=== PATIENT | female | born 1995 | race Caucasian/White ===

== ENCOUNTER 2017-03-24 01:49 | Emergency (ER) | payer OTHER ==
--- NOTE | 2017-03-24 01:55 | EDM.PDOC ---
ED HPI GENERAL MEDICAL PROBLEM - General Stated Complaint: VOMITING, FAINTED Time Seen by Provider: 03/24/17 01:50 - History of Present Illness INITIAL COMMENTS - FREE TEXT/NARRATIVE: HISTORY AND PHYSICAL: History of present illness: This 21-year-old female presents with a concern of syncopal episode after vomiting tonight she states is improved dramatically she denies palpitations or other concerns she has no abdominal pain at this time of discharge irregular bleeding or other complaints Review of systems: As per history of present illness and below otherwise all systems reviewed and negative. Past medical history: As per history of present illness and as reviewed below otherwise noncontributory. Surgical history: As per history of present illness and as reviewed below otherwise noncontributory. Social history: No reported history of drug or alcohol abuse. Family history: As per history of present illness and as reviewed below otherwise noncontributory. Physical exam: HEENT: Atraumatic, normocephalic, pupils reactive, negative for conjunctival pallor or scleral icterus, mucous membranes moist, throat clear, neck supple, nontender, trachea midline. Lungs: Clear to auscultation, breath sounds equal bilaterally, chest nontender. Heart: S1S2, regular, negative for clicks, rubs, or JVD. Abdomen: Soft, nondistended, nontender. Negative for masses or hepatosplenomegaly. Negative for costovertebral tenderness. Pelvis: Stable nontender. Genitourinary: Deferred. Rectal: Deferred. Extremities: Atraumatic, negative for cords or calf pain. Neurovascular unremarkable. Neuro: Awake, alert, oriented. Cranial nerves II through XII unremarkable. Cerebellum unremarkable. Motor and sensory unremarkable throughout. Exam nonfocal. Diagnostics: CBC CMP hCG urine drug screen Therapeutics: None Impression: #1 vasovagal episode #2 history of vomiting Definitive disposition and diagnosis as appropriate pending reevaluation and review of above. - Related Data Allergies Allergy/AdvReac Type Severity Reaction Status Date / Time No Known Allergies Allergy Verified 09/10/16 18:50 Home Meds: Home Meds . 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: Musculoskeletal History: Reports: None Neurological History: Reports: None Psychiatric History: Reports: None Endocrine/Metabolic History: Reports: None Hematologic History: Reports: None Immunologic History: Reports: None Oncologic (Cancer) History: Reports: None Dermatologic History: Reports: None - Infectious Disease History Infectious Disease History: Reports: None - Past Surgical History Female Surgical History: Reports: Section Social & Family History - Family History Family Medical History: Noncontributory - Tobacco Use Smoking Status *Q: Current Every Day Smoker Years of Tobacco use: 4 Packs/Tins Daily: 0.1 Used Tobacco, but Quit: No Second Hand Smoke Exposure: No - Caffeine Use Caffeine Use: Reports: Coffee, Energy Drinks, Soda, Tea - Recreational Drug Use Recreational Drug Use: No ED ROS GENERAL - Review of Systems Review Of Systems: ROS reveals no pertinent complaints other than HPI. ED EXAM, GENERAL - Physical Exam Exam: See Below (See dictation) Course - Orders/Labs/Meds Orders: Active Orders 24 hr Category Date Time Status EKG Documentation Completion [RC] STAT Care 03/24/17 01:51 Ordered CBC WITH AUTO DIFF [HEME] Stat Lab 03/24/17 01:50 Ordered COMPREHENSIVE METABOLIC PN,CMP [CHEM] Stat Lab 03/24/17 01:50 Ordered DRUG SCREEN, URINE [URCHEM] Stat Lab 03/24/17 01:51 Uncollected HCG QUALITATIVE,URINE [URCHEM] Stat Lab 03/24/17 01:50 Uncollected Departure - Departure Time of Disposition: 01:54 Disposition: Home, Self-Care 01 Condition: good Clinical Impression: Syncope - Discharge Information Additional Instructions: The following information is given to patients seen in the emergency department who are being discharged to home. This information is to outline your options for follow-up care. We provide all patients seen in our emergency department with a follow-up referral. The need for follow-up, as well as the timing and circumstances, are variable depending upon the specifics of your emergency department visit. If you don't have a primary care physician on staff, we will provide you with a referral. We always advise you to contact your personal physician following an emergency department visit to inform them of the circumstance of the visit and for follow-up with them and/or the need for any referrals to a consulting specialist. The emergency department will also refer you to a specialist when appropriate. This referral assures that you have the opportunity for followup care with a specialist. All of these measure are taken in an effort to provide you with optimal care, which includes your followup. Under all circumstances we always encourage you to contact your private physician who remains a resource for coordinating your care. When calling for followup care, please make the office aware that this follow-up is from your recent emergency room visit. If for any reason you are refused follow-up, please contact the [facility] emergency department at and asked to speak to the emergency department charge nurse. Push fluids follow up primary medical doctor one to 2 days return as needed as discussed - My Orders Last 24 Hours: My Active Orders 03/24/17 01:50 CBC WITH AUTO DIFF [HEME] Stat COMPREHENSIVE METABOLIC PN,CMP [CHEM] Stat HCG QUALITATIVE,URINE [URCHEM] Stat 03/24/17 01:51 EKG Documentation Completion [RC] STAT DRUG SCREEN, URINE [URCHEM] Stat - Assessment/Plan Last 24 Hours: My Active Orders 03/24/17 01:50 CBC WITH AUTO DIFF [HEME] Stat COMPREHENSIVE METABOLIC PN,CMP [CHEM] Stat HCG QUALITATIVE,URINE [URCHEM] Stat 03/24/17 01:51 EKG Documentation Completion [RC] STAT DRUG SCREEN, URINE [URCHEM] Stat
[2017-03-24 02:31] LABS: CHLORIDE,CL 111 mmol/L (98-110); SODIUM,NA 140 mmol/L (136-146)
[2017-03-24 02:58] VITALS: BP 117/71
== END 2017-03-24 02:55 | disposition home or self-care (01) ==
LOC: MW.ED 01:49
DX: R55 Syncope and collapse (principal); F17.210 Nicotine dependence, cigarettes, uncomplicated
CPT/HCPCS: 36415; 80053; 80305; 81025; 85025; 93005; 99282; 99284-25

== ENCOUNTER 2017-07-25 15:48 | Emergency (ER) | payer OTHER ==
[2017-07-25 15:58] VITALS: BP 122/70
[2017-07-25] MEDS ORDERED: Ketorolac 30 MG/ML SDV IM ONE (16:37)
[2017-07-25] MEDS ORDERED: Dexamethasone 10 MG/ML SDV IM ONE (16:38)
--- NOTE | 2017-07-25 16:48 | EDM.PDOC ---
ED HPI GENERAL MEDICAL PROBLEM - General Chief Complaint: Headache Stated Complaint: HEADACHE Time Seen by Provider: 07/25/17 16:02 Source of Information: Reports: Patient History Limitations: Reports: No Limitations - History of Present Illness INITIAL COMMENTS - FREE TEXT/NARRATIVE: HISTORY AND PHYSICAL: History of present illness: [21-year-old female with a history of migraines now presents emergency department with gradual onset of headache typical for her. No fevers chills sweats or shaking chills. No stiff neck. Patient with normal speech vision coordination gait and strength] Review of systems: As per history of present illness and below otherwise all systems reviewed and negative. Past medical history: As per history of present illness and as reviewed below otherwise noncontributory. Surgical history: As per history of present illness and as reviewed below otherwise noncontributory. Social history: No reported history of drug or alcohol abuse. Family history: As per history of present illness and as reviewed below otherwise noncontributory. Physical exam: Well-appearing 21-year-old female no acute distress alert vigorous ambulating without difficulty comfortable-appearing taxing on her front. HEENT: Atraumatic, normocephalic, pupils reactive, negative for conjunctival pallor or scleral icterus, mucous membranes moist, throat clear, neck supple, nontender, trachea midline. Lungs: Clear to auscultation, breath sounds equal bilaterally, chest nontender. Heart: S1S2, regular, negative for clicks, rubs, or JVD. Abdomen: Soft, nondistended, nontender. Negative for masses or hepatosplenomegaly. Negative for costovertebral tenderness. Pelvis: Stable nontender. Genitourinary: Deferred. Rectal: Deferred. Extremities: Atraumatic, negative for cords or calf pain. Neurovascular unremarkable. Neuro: Awake, alert, oriented. Cranial nerves II through XII unremarkable. Cerebellum unremarkable. Motor and sensory unremarkable throughout. Exam nonfocal. Diagnostics: [] Therapeutics: [] Impression: [Migraine headache] Plan: [Signs and symptoms consistent with gradual onset of migraine headache typical for patient. She is well-appearing supple neck no infectious prodrome. Improved after treatment. No further workup or treatment indicated. Patient agrees with outpatient follow-up and strict return precautions given] Definitive disposition and diagnosis as appropriate pending reevaluation and review of above. 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: Musculoskeletal History: Reports: None Neurological History: Reports: None Psychiatric History: Reports: None Endocrine/Metabolic History: Reports: None Hematologic History: Reports: None Immunologic History: Reports: None Oncologic (Cancer) History: Reports: None Dermatologic History: Reports: None - Infectious Disease History Infectious Disease History: Reports: None - Past Surgical History Head Surgeries/Procedures: Reports: None Female Surgical History: Reports: Section Social & Family History - Family History Family Medical History: Noncontributory - Tobacco Use Smoking Status *Q: Current Every Day Smoker Years of Tobacco use: 3 Packs/Tins Daily: 0.5 Used Tobacco, but Quit: No Second Hand Smoke Exposure: No - Caffeine Use Caffeine Use: Reports: Tea - Recreational Drug Use Recreational Drug Use: No ED ROS GENERAL - Review of Systems Review Of Systems: See Below (History of present illness) - Physical Exam Exam: See Below (History of present illness) Course - Vital Signs Last Recorded V/S: Last Vital Signs Temp 36.2 C 07/25/17 15:56 Pulse 83 07/25/17 15:56 Resp 18 07/25/17 15:56 BP 122/70 07/25/17 15:56 Pulse Ox - Orders/Labs/Meds Meds: Medications Discontinued Medications Generic Name Dose Route Start Last Admin Trade Name Stanford PRN Reason Stop Dose Admin Dexamethasone 10 mg 07/25/17 16:38 07/25/17 16:47 Dexamethasone IM 07/25/17 16:39 10 mg ONETIME ONE Administration Ketorolac Tromethamine 30 mg 07/25/17 16:37 07/25/17 16:47 Toradol IM 07/25/17 16:38 30 mg ONETIME ONE Administration Departure - Departure Time of Disposition: 17:01 Disposition: Home, Self-Care 01 Condition: Good Clinical Impression: Migraine - Discharge Information Instructions: Recurrent Migraine Headache, [id number], General Headache Without Cause, [id number] Referrals: Clifford Frey MD [Primary Care Provider] - Forms: ED Department Discharge Additional Instructions: You are suffering from a migraine headache. Rest and drink plenty of fluids. Take 600 mg of ibuprofen every 6 hours as well as tylenol every 4 hours as needed for pain. Consider over the counter benadryl 25 mg every 4-6 hours as needed if you find this to be helpful for migraines. Follow up with your doctor tomorrow.
== END 2017-07-25 17:12 | disposition home or self-care (01) ==
LOC: MW.ED 15:48
DX: G43.909 Migraine, unspecified, not intractable, without status migrainosus (principal); F17.210 Nicotine dependence, cigarettes, uncomplicated
CPT/HCPCS: 96372; 99283; J1100; J1885; 99282

== ENCOUNTER 2017-11-14 23:07 | Emergency (ER) | payer OTHER ==
--- NOTE | 2017-11-14 23:32 | EDM.PDOC ---
ED HPI GENERAL MEDICAL PROBLEM - General Chief Complaint: ENT Problem Stated Complaint: PT HAS SORE THROAT Time Seen by Provider: 11/14/17 23:29 - History of Present Illness INITIAL COMMENTS - FREE TEXT/NARRATIVE: HISTORY AND PHYSICAL: History of present illness: Patient's 21-year-old white female presents with concern of sore throat fever chills states has had some body aches denies vomiting diarrhea or other concern Review of systems: As per history of present illness and below otherwise all systems reviewed and negative. Past medical history: As per history of present illness and as reviewed below otherwise noncontributory. Surgical history: As per history of present illness and as reviewed below otherwise noncontributory. Social history: No reported history of drug or alcohol abuse. Family history: As per history of present illness and as reviewed below otherwise noncontributory. Physical exam: HEENT: Atraumatic, normocephalic, pupils reactive, negative for conjunctival pallor or scleral icterus, mucous membranes moist, throat mild injection with slight edema of her uvula, neck supple, nontender, trachea midline. Lungs: Clear to auscultation, breath sounds equal bilaterally, chest nontender. Heart: S1S2, regular, negative for clicks, rubs, or JVD. Abdomen: Soft, nondistended, nontender. Negative for masses or hepatosplenomegaly. Negative for costovertebral tenderness. Pelvis: Stable nontender. Genitourinary: Deferred. Rectal: Deferred. Extremities: Atraumatic, negative for cords or calf pain. Neurovascular unremarkable. Neuro: Awake, alert, oriented. Cranial nerves II through XII unremarkable. Cerebellum unremarkable. Motor and sensory unremarkable throughout. Exam nonfocal. Diagnostics: Rapid strep influenza screen Therapeutics: None Impression: #1 viral syndrome Definitive disposition and diagnosis as appropriate pending reevaluation and review of above. throat Pain Score (Numeric/FACES): 7 hypogastric Pain Score (Numeric/FACES): 8 - Related Data Allergies Allergy/AdvReac Type Severity Reaction Status Date / Time No Known Allergies Allergy Verified 11/14/17 23:20 Home Meds: Home Meds Fludrocortisone [Florinef] 0.1 mg PO WITHBREAKFAST 07/25/17 [History] Past Medical History - Past Health History Medical/Surgical History: Denies Medical/Surgical History HEENT History: Reports: None Cardiovascular History: Reports: Syncope, Other (See Below) Other Cardiovascular History: orthostatic hypotension Respiratory History: Reports: None Gastrointestinal History: Reports: None Genitourinary History: Reports: None 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: Musculoskeletal History: Reports: None Neurological History: Reports: None Psychiatric History: Reports: None Endocrine/Metabolic History: Reports: None Hematologic History: Reports: None Immunologic History: Reports: None Oncologic (Cancer) History: Reports: None Dermatologic History: Reports: None - Infectious Disease History Infectious Disease History: Reports: None - Past Surgical History Head Surgeries/Procedures: Reports: None Female Surgical History: Reports: Section Social & Family History - Family History Family Medical History: Noncontributory - Tobacco Use Smoking Status *Q: Current Every Day Smoker Years of Tobacco use: 4 Packs/Tins Daily: 1 Used Tobacco, but Quit: No Second Hand Smoke Exposure: No - Caffeine Use Caffeine Use: Reports: Tea - Recreational Drug Use Recreational Drug Use: No ED ROS GENERAL - Review of Systems Review Of Systems: ROS reveals no pertinent complaints other than HPI. ED EXAM, GENERAL - Physical Exam Exam: See Below (See dictation) Course - Vital Signs Last Recorded V/S: Last Vital Signs Temp 36.6 C 11/14/17 23:07 Pulse 78 11/14/17 23:07 Resp 18 11/14/17 23:07 BP 172/95 H 11/14/17 23:07 Pulse Ox 98 11/14/17 23:07 - Orders/Labs/Meds Orders: Active Orders 24 hr Category Date Time Status CULTURE STREP A CONFIRMATION [] Stat Lab 11/14/17 23:35 Results STREP SCRN A RAPID W CULT CONF [RM] Stat Lab 11/14/17 23:35 Results Labs: Laboratory Tests 11/14/17 Range/Units 23:40 Urine Color YELLOW Urine Appearance CLOUDY Urine pH 5.5 (5.0-8.0) Ur Specific [place] >= 1.030 (1.001-1.035) Urine Protein NEGATIVE (NEGATIVE) mg/dL Urine Glucose (UA) NEGATIVE (NEGATIVE) mg/dL Urine Ketones NEGATIVE (NEGATIVE) mg/dL Urine Occult Blood NEGATIVE (NEGATIVE) Urine Nitrite NEGATIVE (NEGATIVE) Urine Bilirubin NEGATIVE (NEGATIVE) Urine Urobilinogen 0.2 (<2.0) EU/dL Ur Leukocyte Esterase SMALL (NEGATIVE) Urine RBC 0-2 (0-2/HPF) Urine WBC 75-100 (0-5/HPF) Ur Epithelial Cells FEW (NONE-FEW) Urine Bacteria 3+ H (NEGATIVE) Departure - Departure Time of Disposition: 00:10 Disposition: Home, Self-Care 01 Condition: Good Clinical Impression: Viral syndrome - Discharge Information Referrals: PCP,None [Primary Care Provider] - Forms: ED Department Discharge Additional Instructions: The following information is given to patients seen in the emergency department who are being discharged to home. This information is to outline your options for follow-up care. We provide all patients seen in our emergency department with a follow-up referral. The need for follow-up, as well as the timing and circumstances, are variable depending upon the specifics of your emergency department visit. If you don't have a primary care physician on staff, we will provide you with a referral. We always advise you to contact your personal physician following an emergency department visit to inform them of the circumstance of the visit and for follow-up with them and/or the need for any referrals to a consulting specialist. The emergency department will also refer you to a specialist when appropriate. This referral assures that you have the opportunity for followup care with a specialist. All of these measure are taken in an effort to provide you with optimal care, which includes your followup. Under all circumstances we always encourage you to contact your private physician who remains a resource for coordinating your care. When calling for followup care, please make the office aware that this follow-up is from your recent emergency room visit. If for any reason you are refused follow-up, please contact the [facility] emergency department at and asked to speak to the emergency department charge nurse. Motrin/Tylenol as directed follow-up primary medical doctor 1-2 days push fluids return as needed as discussed - My Orders Last 24 Hours: My Active Orders 11/14/17 23:35 CULTURE STREP A CONFIRMATION [RM] Stat STREP SCRN A RAPID W CULT CONF [RM] Stat - Assessment/Plan Last 24 Hours: My Active Orders 11/14/17 23:35 CULTURE STREP A CONFIRMATION [RM] Stat STREP SCRN A RAPID W CULT CONF [RM] Stat
[2017-11-15 00:38] VITALS: BP 156/90
== END 2017-11-15 00:35 | disposition home or self-care (01) ==
LOC: MW.ED 23:07
DX: B34.9 Viral infection, unspecified (principal); N39.0 Urinary tract infection, site not specified; F17.210 Nicotine dependence, cigarettes, uncomplicated
CPT/HCPCS: 81001; 87081; 87804; 87880; 99283

== ENCOUNTER 2018-04-12 17:24 | Emergency (ER) | payer OTHER ==
[2018-04-12] MEDS ORDERED: Sodium Chloride 0.9% 1,000 ML IV ONE (17:33)
--- NOTE | 2018-04-12 17:36 | EDM.PDOC ---
ED HPI GENERAL MEDICAL PROBLEM - General Chief Complaint: Chest Pain Stated Complaint: HEART PROBLEMS Time Seen by Provider: 04/12/18 17:32 - History of Present Illness INITIAL COMMENTS - FREE TEXT/NARRATIVE: HISTORY AND PHYSICAL: History of present illness: Patient's 22-year-old female presents with concern of chest pain is vaguely described without associated shortness breath nausea vomiting fever chills. Patient has a history of vasovagal syncope. Current meds include Florinef Review of systems: As per history of present illness and below otherwise all systems reviewed and negative. Past medical history: As per history of present illness and as reviewed below otherwise noncontributory. Surgical history: As per history of present illness and as reviewed below otherwise noncontributory. Social history: No reported history of drug or alcohol abuse. Family history: As per history of present illness and as reviewed below otherwise noncontributory. Physical exam: HEENT: Atraumatic, normocephalic, pupils reactive, negative for conjunctival pallor or scleral icterus, mucous membranes moist, throat clear, neck supple, nontender, trachea midline. Lungs: Clear to auscultation, breath sounds equal bilaterally, chest nontender. Heart: S1S2, regular, negative for clicks, rubs, or JVD. Abdomen: Soft, nondistended, nontender. Negative for masses or hepatosplenomegaly. Negative for costovertebral tenderness. Pelvis: Stable nontender. Genitourinary: Deferred. Rectal: Deferred. Extremities: Atraumatic, negative for cords or calf pain. Neurovascular unremarkable. Neuro: Awake, alert, oriented. Cranial nerves II through XII unremarkable. Cerebellum unremarkable. Motor and sensory unremarkable throughout. Exam nonfocal. Diagnostics: Chest x-ray EKG CBC CMP Therapeutics: Normal saline 1 L bolus Impression: #1 atypical chest pain Definitive disposition and diagnosis as appropriate pending reevaluation and review of above. Chest Pain Score (Numeric/FACES): 4 - Related Data Allergies Allergy/AdvReac Type Severity Reaction Status Date / Time No Known Allergies Allergy Verified 11/14/17 23:20 Home Meds: Home Meds Fludrocortisone [Florinef] 0.1 mg PO WITHBREAKFAST 07/25/17 [History] Past Medical History - Past Health History Medical/Surgical History: Denies Medical/Surgical History HEENT History: Reports: None Cardiovascular History: Reports: Syncope, Other (See Below) Other Cardiovascular History: orthostatic hypotension Respiratory History: Reports: None Gastrointestinal History: Reports: None Genitourinary History: Reports: None 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: Musculoskeletal History: Reports: None Neurological History: Reports: None Psychiatric History: Reports: None Endocrine/Metabolic History: Reports: None Hematologic History: Reports: None Immunologic History: Reports: None Oncologic (Cancer) History: Reports: None Dermatologic History: Reports: None - Infectious Disease History Infectious Disease History: Reports: None - Past Surgical History Head Surgeries/Procedures: Reports: None Female Surgical History: Reports: Section Social & Family History - Family History Family Medical History: Noncontributory - Tobacco Use Smoking Status *Q: Current Every Day Smoker Years of Tobacco use: 5 Packs/Tins Daily: 0.5 - Caffeine Use Caffeine Use: Reports: Tea ED ROS GENERAL - Review of Systems Review Of Systems: ROS reveals no pertinent complaints other than HPI. ED EXAM, GENERAL - Physical Exam Exam: See Below (The dictation) Course - Vital Signs Last Recorded V/S: Last Vital Signs Temp 36.6 C 04/12/18 17:33 Pulse 104 H 04/12/18 17:33 Resp 16 04/12/18 17:33 BP 170/120 H 04/12/18 17:33 Pulse Ox 100 04/12/18 17:33 - Orders/Labs/Meds Orders: Active Orders 24 hr Category Date Time Status EKG Documentation Completion [RC] STAT Care 04/12/18 17:33 Active Chest 1V Frontal [CR] Stat Exams 04/12/18 17:34 Taken Sodium Chloride 0.9% [Normal Saline] 1,000 ml Med 04/12/18 17:33 Active IV STAT Medication Orders Sodium Chloride (Normal Saline) 1,000 mls @ 999 mls/hr IV STAT ONE Stop: 04/12/18 18:33 Last Admin: 04/12/18 17:37 Dose: 999 mls/hr Labs: Laboratory Tests 04/12/18 04/12/18 Range/Units 17:40 17:40 WBC 8.89 (4.0-11.0) K/uL RBC 4.58 (4.30-5.90) M/uL Hgb 14.9 (12.0-16.0) g/dL Hct 43.0 (36.0-46.0) % MCV 93.9 (80.0-98.0) fL MCH 32.5 H (27.0-32.0) pg MCHC 34.7 (31.0-37.0) g/dL RDW Std Deviation 45.2 (28.0-62.0) fl RDW Coeff of Flo 13 (11.0-15.0) % Plt Count 249 (150-400) K/uL MPV 10.50 (7.40-12.00) fL Neut % (Auto) 79.0 (48.0-80.0) % Lymph % (Auto) 13.8 L (16.0-40.0) % [place] % (Auto) 6.3 (0.0-15.0) % Eos % (Auto) 0.7 (0.0-7.0) % Baso % (Auto) 0.2 (0.0-1.5) % Neut # (Auto) 7.0 H (1.4-5.7) K/uL Lymph # (Auto) 1.2 (0.6-2.4) K/uL [place] # (Auto) 0.6 (0.0-0.8) K/uL Eos # (Auto) 0.1 (0.0-0.7) K/uL Baso # (Auto) 0.0 (0.0-0.1) K/uL Nucleated RBC % 0.0 /100WBC Nucleated RBCs # 0 K/uL Sodium 144 (136-145) mmol/L Potassium 3.6 (3.5-5.1) mmol/L Chloride 106 (98-107) mmol/L Carbon Dioxide 25.0 (21.0-32.0) mmol/L BUN 11 (7.0-18.0) mg/dL Creatinine 0.9 (0.6-1.0) mg/dL Est Cr Clr Drug Dosing 80.42 mL/min Estimated GFR (MDRD) > 60.0 ml/min Glucose 86 (74-106) mg/dL Calcium 9.3 (8.5-10.1) mg/dL Total Bilirubin 0.4 (0.2-1.0) mg/dL AST 16 (15-37) IU/L ALT 18 (14-63) IU/L Alkaline Phosphatase 56 (46-116) U/L Total Protein 8.0 (6.4-8.2) g/dL Albumin 4.4 (3.4-5.0) g/dL Globulin 3.6 H (2.0-3.5) g/dL Albumin/Globulin Ratio 1.2 L (1.3-2.8) Meds: Medications Generic Name Dose Route Start Last Admin Trade Name Freq PRN Reason Stop Dose Admin Sodium Chloride 1,000 mls @ 999 mls/hr 04/12/18 17:33 04/12/18 17:37 Normal Saline IV 04/12/18 18:33 999 mls/hr STAT ONE Administration Departure - Departure Time of Disposition: 17:36 Disposition: Home, Self-Care 01 Condition: Good Clinical Impression: Atypical chest pain - Discharge Information Referrals: PCP,None [Primary Care Provider] - Forms: ED Department Discharge Additional Instructions: The following information is given to patients seen in the emergency department who are being discharged to home. This information is to outline your options for follow-up care. We provide all patients seen in our emergency department with a follow-up referral. The need for follow-up, as well as the timing and circumstances, are variable depending upon the specifics of your emergency department visit. If you don't have a primary care physician on staff, we will provide you with a referral. We always advise you to contact your personal physician following an emergency department visit to inform them of the circumstance of the visit and for follow-up with them and/or the need for any referrals to a consulting specialist. The emergency department will also refer you to a specialist when appropriate. This referral assures that you have the opportunity for followup care with a specialist. All of these measure are taken in an effort to provide you with optimal care, which includes your followup. Under all circumstances we always encourage you to contact your private physician who remains a resource for coordinating your care. When calling for followup care, please make the office aware that this follow-up is from your recent emergency room visit. If for any reason you are refused follow-up, please contact the [facility] emergency department at and asked to speak to the emergency department charge nurse. Continue current meds follow-up primary medical doctor as needed as discussed return as needed as discussed - My Orders Last 24 Hours: My Active Orders 04/12/18 17:33 EKG Documentation Completion [RC] STAT Sodium Chloride 0.9% [Normal Saline] 1,000 ml IV STAT 04/12/18 17:34 Chest 1V Frontal [CR] Stat - Assessment/Plan Last 24 Hours: My Active Orders 04/12/18 17:33 EKG Documentation Completion [RC] STAT Sodium Chloride 0.9% [Normal Saline] 1,000 ml IV STAT 04/12/18 17:34 Chest 1V Frontal [CR] Stat
[2018-04-12 18:06] LABS: CHLORIDE,CL 106 mmol/L (98-107); SODIUM,NA 144 mmol/L (136-145)
[2018-04-12 18:38] VITALS: BP 147/81
--- NOTE | 2018-04-15 09:56 | CR ---
EXAM DATE: 04/12/18 PATIENT'S AGE: 22 Patient: ADONIS AMIN Facility: [place], [place] Site . Site : 1995 Study: XRay Chest [id number]/15/2018 5:38:01 PM Ordering Physician: Chalo Liriano Final Report: INDICATION: chest pain TECHNIQUE: Chest 1 view COMPARISON: March 08, 2010 FINDINGS: Cardiovascular and mediastinum: Heart size and vasculature are normal in caliber and appearance. Mediastinum is within normal limits. Lungs and pleural space: No focal consolidation. No sign of pleural effusion. No pneumothorax. Bones and soft tissues: No significant findings. IMPRESSION: No acute cardiopulmonary disease. Dictated by Robert Lea MD @ 04/12/2018 6:14:59 PM Dictated by: Robert Lea MD @ 04/12/2018 18:15:36 (Electronic Signature) Report Signed by Proxy. ST[facility]IATRIC CENTERMatt
== END 2018-04-12 18:44 | disposition home or self-care (01) ==
LOC: MW.ED 17:24
DX: R07.89 Other chest pain (principal); F17.210 Nicotine dependence, cigarettes, uncomplicated; Z79.899 Other long term (current) drug therapy
CPT/HCPCS: 36415; 71045; 80053; 85025; 93005; 96360; 99285; J7040

== ENCOUNTER 2019-01-06 18:49 | Observation (INO) | payer OTHER, MEDICAID ==
[2019-01-06] MEDS ORDERED: Sodium Chloride 0.9% 2.5 ML Syringe FLUSH PRN (19:12)
[2019-01-06] MEDS ORDERED: Ondansetron 4 MG/2 ML SDV IVPUSH ONE (19:12)
[2019-01-06] MEDS ORDERED: Sodium Chloride 0.9% 10 ML Syringe FLUSH PRN (19:12)
[2019-01-06] MEDS ORDERED: Morphine 2 MG/ML Syringe IVPUSH ONE ×4 (19:12→22:41)
[2019-01-06] MEDS ORDERED: Sodium Chloride 0.9% 1,000 ML IV ONE (19:12)
--- NOTE | 2019-01-06 19:16 | EDM.PDOC ---
ED HPI GENERAL MEDICAL PROBLEM - General Chief Complaint: Lower Extremity Injury/Pain Stated Complaint: HURT R ANKLE Time Seen by Provider: 01/06/19 19:08 - History of Present Illness INITIAL COMMENTS - FREE TEXT/NARRATIVE: HISTORY AND PHYSICAL: History of present illness: The patient is a healthy 23-year-old female who is 27 weeks and presents with complaints of right ankle pain after she slipped and fell and rolled her ankle and heard a pop. She did not pass out or black out and she did not hit her head back or abdomen. Prior to these events she was in her usual state of good health and she has had movement and she has had no abdominal pain or vaginal bleeding. The patient says the pain is localized to the right ankle and radiates up her leg but she doesn't have any discrete knee pain hip pain or pelvis pain. Neurosensory is intact in her foot and she can wiggle her toes but it is discomforting. She did not take any pain medication prior to coming here Review of systems: As per history of present illness and below otherwise all systems reviewed and negative. Past medical history: As per history of present illness and as reviewed below otherwise noncontributory. Surgical history: As per history of present illness and as reviewed below otherwise noncontributory. Social history: No reported history of drug or alcohol abuse. Family history: As per history of present illness and as reviewed below otherwise noncontributory. Physical exam: General: Well-developed well-nourished female who is nontoxic and vital signs are noted by me HEENT: Atraumatic, normocephalic, negative for conjunctival pallor or scleral icterus, mucous membranes moist, throat clear, neck supple, nontender, trachea midline. There are no palpable bony deformities of the scalp skull and no midline step-offs tenderness defects of the cervical spine Lungs: Clear to auscultation, breath sounds equal bilaterally, chest nontender. Heart: S1S2, regular rhythm slightly tachycardic rate of my evaluation but no overt murmurs Abdomen: Soft, nondistended, nontender. Gravid uterus with a fundus above the level of the umbilicus without any tenderness. Pelvis: Stable nontender. No lateral hip tenderness on palpation Genitourinary: Deferred. Rectal: Deferred. Extremities: Atraumatic with full range of motion of all extremities with the exception of the right ankle with there is diffuse circumferential soft tissue swelling and tenderness but the alignment appears to be normal. There is some proximal fibular tenderness without defects or deformities but the knee thigh and hip are all nontender without any palpable deformities. The distal foot is intact and there is no tenderness along the metatarsals feel the toes.. Neurovascular unremarkable. Neuro: Awake, alert, oriented. Cranial nerves II through XII unremarkable. Cerebellum unremarkable. Motor and sensory unremarkable throughout. Exam nonfocal. Diagnostics: X-ray right tib-fib and ankle, heart tones Pelvic ultrasound Therapeutics: IV placement, IV fluids Zofran and morphine, post mold and sugar tong splints heart tones 139 in the left lower quadrant per nursing 2103: Dr. Gallegos was contacted and is currently reviewing the x-rays for care plan. She is aware that she is 27 weeks . 2114 and 2117: Case was discussed with Dr. Gallegos after she saw the x-rays as well as Dr. Wilkes from OB. Pain management is going to be the issue here as the patient is still having significant pain. I will give her another dose of morphine and Dr. Gallegos said we can get her pain under control then she can see the patient in the clinic. Dr. Wilkes approved use of morphine IV as well as Percocet orally. Both of said that if her pain is not controlled and she will need to be admitted for pain management. Dr. Wilkes has asked for a pelvic ultrasound to document viability and the patient is aware of this. 2246: As the patient is having continued pain I contacted Dr. Gallegos will admit the patient and I will also put in a consult to Dr. Wilkes. Patient is aware of this. We'll also place a sugar tong and post mold splint and Dr. Gallegos will call the floor for orders. Impression: Trimalleolar fracture right Third trimester stable Definitive disposition and diagnosis as appropriate pending reevaluation and review of above. Right ankle Pain Score (Numeric/FACES): 10 - Related Data Allergies Allergy/AdvReac Type Severity Reaction Status Date / Time No Known Allergies Allergy Verified 01/06/19 19:17 Home Meds: Home Meds PNV95/Ferrous Fumarate/FA [ Tablet] 1 each PO DAILY 01/06/19 [History] Past Medical History - Past Health History Medical/Surgical History: Denies Medical/Surgical History HEENT History: Reports: None Cardiovascular History: Reports: Syncope, Other (See Below) Other Cardiovascular History: states "my heart beats fast when I pass out" Respiratory History: Reports: None Gastrointestinal History: Reports: None Genitourinary History: Reports: None 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: Musculoskeletal History: Reports: None Neurological History: Reports: None Psychiatric History: Reports: Anxiety, Depression Endocrine/Metabolic History: Reports: None Hematologic History: Reports: None Immunologic History: Reports: None Oncologic (Cancer) History: Reports: None Dermatologic History: Reports: None - Infectious Disease History Infectious Disease History: Reports: None - Past Surgical History Head Surgeries/Procedures: Reports: None Female Surgical History: Reports: Section Social & Family History - Family History Family Medical History: Noncontributory - Caffeine Use Caffeine Use: Reports: Coffee, Energy Drinks, Soda Review of Systems - Review of Systems Review Of Systems: ROS reveals no pertinent complaints other than HPI. ED EXAM, GENERAL - Physical Exam Exam: See Below (See dictation) Course - Vital Signs Last Recorded V/S: Last Vital Signs Temp 36.4 C 01/06/19 20:51 Pulse 82 01/06/19 22:48 Resp 18 01/06/19 22:48 BP 121/74 01/06/19 22:48 Pulse Ox 97 01/06/19 22:48 - Orders/Labs/Meds Orders: Active Orders 24 hr Category Date Time Status Patient Status [ADT] Stat ADT 01/06/19 22:49 Ordered Communication Order [RC] STAT Care 01/06/19 19:11 Active Notify Provider Consults [RC] ASDIRECTED Care 01/06/19 22:49 Ordered Consult to Physician [CONS] Stat Cons 01/06/19 22:48 Ordered Ankle Min 3V Rt [CR] Stat Exams 01/06/19 19:11 Taken Sodium Chloride 0.9% @ 125 MLS/HR (1,000ml) Med 01/06/19 23:00 Ordered Sodium Chloride 0.9% [Normal Saline] 1,000 ml IV ASDIRECTED Sodium Chloride 0.9% [Saline Flush] Med 01/06/19 19:12 Active 10 ml FLUSH ASDIRECTED PRN Sodium Chloride 0.9% [Saline Flush] Med 01/06/19 19:12 Active 2.5 ml FLUSH ASDIRECTED PRN DME for Discharge [COMM] Stat Oth 01/06/19 22:50 Ordered Saline Lock Insert [OM.PC] Stat Oth 01/06/19 19:12 Ordered Medication Orders Sodium Chloride (Saline Flush) 10 ml FLUSH ASDIRECTED PRN PRN Reason: Keep Vein Open Sodium Chloride (Saline Flush) 2.5 ml FLUSH ASDIRECTED PRN PRN Reason: Keep Vein Open Meds: Medications Generic Name Dose Route Start Last Admin Trade Name Freq PRN Reason Stop Dose Admin Sodium Chloride 10 ml 01/06/19 19:12 Saline Flush FLUSH ASDIRECTED PRN Keep Vein Open Sodium Chloride 2.5 ml 01/06/19 19:12 Saline Flush FLUSH ASDIRECTED PRN Keep Vein Open Discontinued Medications Generic Name Dose Route Start Last Admin Trade Name Freq PRN Reason Stop Dose Admin Sodium Chloride 1,000 mls @ 999 mls/hr 01/06/19 19:12 01/06/19 19:28 Normal Saline IV 01/06/19 20:12 999 mls/hr STAT ONE Administration Morphine Sulfate 4 mg 01/06/19 19:12 01/06/19 19:36 Morphine IVPUSH 01/06/19 19:13 4 mg ONETIME ONE Administration Morphine Sulfate 4 mg 01/06/19 21:20 01/06/19 21:29 Morphine IVPUSH 01/06/19 21:21 4 mg ONETIME ONE Administration Morphine Sulfate 4 mg 01/06/19 22:05 01/06/19 22:17 Morphine IVPUSH 01/06/19 22:06 4 mg ONETIME ONE Administration Morphine Sulfate 4 mg 01/06/19 22:41 01/06/19 22:49 Morphine IVPUSH 01/06/19 22:42 4 mg ONETIME ONE Administration Ondansetron HCl 4 mg 01/06/19 19:12 01/06/19 19:27 Zofran IVPUSH 01/06/19 19:13 4 mg ONETIME ONE Administration Departure - Departure Time of Disposition: 22:52 Disposition: Refer to Observation Condition: Good Clinical Impression: Trimalleolar fracture Qualifiers: Encounter type: initial encounter Fracture type: closed Laterality: left Qualified Code(s): S82.852A - Displaced trimalleolar fracture of left lower leg , initial encounter for closed fracture - Discharge Information Referrals: Melanie Silva MD [Primary Care Provider] - Forms: ED Department Discharge - My Orders Last 24 Hours: My Active Orders 01/06/19 19:11 Communication Order [RC] STAT Ankle Min 3V Rt [CR] Stat 01/06/19 19:12 Sodium Chloride 0.9% [Saline Flush] 10 ml FLUSH ASDIRECTED PRN Sodium Chloride 0.9% [Saline Flush] 2.5 ml FLUSH ASDIRECTED PRN Saline Lock Insert [OM.PC] Stat 01/06/19 22:48 Consult to Physician [CONS] Stat 01/06/19 22:49 Patient Status [ADT] Stat Notify Provider Consults [RC] ASDIRECTED 01/06/19 22:50 DME for Discharge [COMM] Stat 01/06/19 23:00 Sodium Chloride 0.9% @ 125 MLS/HR (1,000ml) Sodium Chloride 0.9% [Normal Saline ] 1,000 ml IV ASDIRECTED - Assessment/Plan Last 24 Hours: My Active Orders 01/06/19 19:11 Communication Order [RC] STAT Ankle Min 3V Rt [CR] Stat 01/06/19 19:12 Sodium Chloride 0.9% [Saline Flush] 10 ml FLUSH ASDIRECTED PRN Sodium Chloride 0.9% [Saline Flush] 2.5 ml FLUSH ASDIRECTED PRN Saline Lock Insert [OM.PC] Stat 01/06/19 22:48 Consult to Physician [CONS] Stat 01/06/19 22:49 Patient Status [ADT] Stat Notify Provider Consults [RC] ASDIRECTED 01/06/19 22:50 DME for Discharge [COMM] Stat 01/06/19 23:00 Sodium Chloride 0.9% @ 125 MLS/HR (1,000ml) Sodium Chloride 0.9% [Normal Saline ] 1,000 ml IV ASDIRECTED
--- NOTE | 2019-01-06 21:03 | CR ---
Indication: Pain after fall Technique: Two views right tibia fibula Comparison: None Findings: Distal tibia and fibular fractures redemonstrated. Remainder of the tibia and fibula show normal bony mineralization without fracture. No proximal soft tissue swelling. Impression: No evidence of proximal tibia or fibular fracture. Please see ankle report for comments about the trimalleolar fracture. Dictated by Barber Solis MD @ Jan 06 2019 9:00PM Signed by Dr. Barber Solis @ Jan 06 2019 9:02PM
--- NOTE | 2019-01-06 22:44 | US ---
INDICATION: Fall. TECHNIQUE: Limited transabdominal obstetrical ultrasound. COMPARISON: None available FINDINGS: A single live intrauterine gestation is seen in cephalic presentation. There is cardiac activity with a heart rate of 129 BPM. measurements are not performed and anatomy is not evaluated. The placenta is anterior. The cervix is not well seen. Amniotic fluid volume is within normal limits with an EVANGELINA of 17.7 cm, and the deepest single pocket measuring 5.2 cm. Neither ovary is visualized. No significant free fluid is seen. IMPRESSION: A single live intrauterine gestation. anatomy is not evaluated. Followup, as clinically indicated. Nonvisualization of the ovaries. Dictated by Ambrocio Jessica MD @ 01/06/2019 10:42:13 PM Dictated by: Ambrocio Jessica MD @ 01/06/2019 22:42:23 (Electronically Signed)
[2019-01-06] MEDS ORDERED: Sodium Chloride 0.9% 1,000 ML IV SCH (23:00)
[2019-01-06] MEDS ORDERED: Morphine 2 MG/ML Syringe IVPUSH SCH (23:45)
[2019-01-06] MEDS ORDERED: Betamethasone Acetate/Betamethasone Sod Phosphate 30 MG/5 ML MDV IM ONE (23:58)
--- NOTE | 2019-01-07 00:10 | PCM.SN ---
- Free Text/Narrative Note: 23yo @ 27w ( Previous X1) admitted due to fall on the right ankle. Patient states she was about to throw garbage and slipped and fell on her side, she denies any fall on her abdomen , pelvic pain or cramping or bleeding. She also reports movement. Patient complains of pain in the right ankle that radiates to the left. She had Xray done which showed distal tibia and fibula fracture USS done: Live intrauterine gestation with FHR 129, Normal amniotic fluid Exam: General : NAD, patient with a cast on the right lower limb Chest; CTA BL CVS; s1 s2 no murmurs Pelvic : Deffered VSS: BP: 137/74 HR: 92 Osat: 92% A/P 23yo @ 27w with Fracture of Right tibia fibula status reassuring Plan Pain control as needed Recommend Betamethasone Before surgery if planned ( ordered) NST q shift , will get one this night Please consult OB if surgery planned in AM
[2019-01-07] MEDS: Sodium Chloride 0.65% Nasal Spray 45 ML Bottle NAS SCH ×6 (01:31→21:04)
[2019-01-07] MEDS: Lactated Ringers 1,000 ML IV SCH ×2 (01:33→11:07)
[2019-01-07] MEDS: Acetaminophen 1,000 MG in Premix Bag 1 BAG IV SCH ×3 (01:42→12:54)
[2019-01-07] MEDS: Morphine 2 MG/ML Syringe IVPUSH PRN ×4 (02:08→12:51)
--- NOTE | 2019-01-07 08:34 | PCM.HP ---
H&P History of Present Illness - General Date of Service: 01/07/19 Admit Problem/Dx: Admission Diagnosis/Problem Admission Diagnosis/Problem Trimalleolar fracture Source of Information: Patient History Limitations: Reports: No Limitations - History of Present Illness Initial Comments - Free Text/Narative: Patient is a 27 week female who fell yesterday. c/o R ankle pain. Denies other injuries. No previous h/o right ankle pain. Evaluated in ER--XR show R trimalleolar ankle fracture. Admitted for pain control. Was evaluated by OB last night--US normal, normal FHT and movement. Pain well controlled overnight with morphine. Denies distal paralysis, paresthesias. Quality: Reports: Dull, Throbbing Severity: Moderate Improves with: Reports: Immobilization, Rest Worsens with: Reports: Movement Context: Reports: Trauma Associated Symptoms: Reports: No Other Symptoms Right ankle Pain Score (Numeric/FACES): 6 - Related Data Allergies/Adverse Reactions: Allergies Allergy/AdvReac Type Severity Reaction Status Date / Time No Known Allergies Allergy Verified 01/06/19 19:17 Home Medications: Home Meds PNV95/Ferrous Fumarate/FA [ Tablet] 1 each PO DAILY 01/06/19 [History] Past Medical History - Past Health History Medical/Surgical History: Denies Medical/Surgical History HEENT History: Reports: Sinusitis Cardiovascular History: Reports: Heart Murmur, Syncope, Other (See Below) Other Cardiovascular History: states "my heart beats fast when I pass out". 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: Musculoskeletal History: Reports: None Neurological History: Reports: None Psychiatric History: Reports: Anxiety, Depression, PTSD, Suicide Attempt Endocrine/Metabolic History: Reports: None Hematologic History: Reports: None Immunologic History: Reports: None Oncologic (Cancer) History: Reports: None Dermatologic History: Reports: None, Other (See Below) Other Dermatologic History: gets heat rashes and uses otc lotion - Infectious Disease History Infectious Disease History: Reports: None - Past Surgical History Head Surgeries/Procedures: Reports: None Cardiovascular Surgical History: Reports: None Respiratory Surgical History: Reports: None GI Surgical History: Reports: None Female Surgical History: Reports: Section Musculoskeletal Surgical History: Reports: None Dermatological Surgical History: Reports: None Social & Family History - Family History Family Medical History: Noncontributory - Tobacco Use Smoking Status *Q: Former Smoker Years of Tobacco use: 5 Packs/Tins Daily: 0.2 Used Tobacco, but Quit: Yes Month/Year Tobacco Last Used: 11/2018 Second Hand Smoke Exposure: No - Caffeine Use Caffeine Use: Reports: Coffee, Soda - Recreational Drug Use Recreational Drug Use: No H&P Review of Systems - Review of Systems: Review Of Systems: See Below General: Reports: No Symptoms HEENT: Reports: No Symptoms Pulmonary: Reports: No Symptoms Cardiovascular: Reports: Other (h/o vasovagal syncope--has been evaluated by cardiology in past) Gastrointestinal: Reports: No Symptoms Genitourinary: Reports: Other () Skin: Reports: No Symptoms Psychiatric: Reports: No Symptoms Neurological: Reports: No Symptoms Hematologic/Lymphatic: Reports: No Symptoms Immunologic: Reports: No Symptoms Exam - Exam Exam: See Below - Vital Signs Vital Signs: Last Vital Signs Temp 98.6 F 01/07/19 07:20 Pulse 101 H 01/07/19 07:20 Resp 16 01/07/19 07:20 BP 97/51 L 01/07/19 07:20 Pulse Ox 98 01/07/19 07:20 Weight: 64.864 kg - Exam HEENT: Conjunctiva Clear, Hearing Intact, Nares Patent Neck: Supple, Trachea Midline, 2 Lungs: Normal Respiratory Effort Cardiovascular: Regular Rate (Female) Exam: Deferred Rectal (Female) Exam: Deferred Psychiatric: Alert, Normal Affect, Normal Mood Physical Exam Comments:: Exam of RLE shows splint in place. Moves toes to command. Cap refill/sensation intact. - Patient Data Imaging Impressions Last 24 hrs: XR of right ankle reviewed. Shows right trimalleolar ankle fracture. - Problem List (1) Trimalleolar fracture SNOMED Code(s): 872355426 ICD Code: S82.853A - DISPLACED TRIMALLEOLAR FRACTURE OF UNSP LOWER LEG, INIT Status: Acute Current Visit: Yes Qualifiers: Encounter type: initial encounter Fracture type: closed Laterality: right Qualified Code(s): S82.851A - Displaced trimalleolar fracture of right lower leg, initial encounter for closed fracture Problem List Initiated/Reviewed/Updated: Yes Orders Last 24hrs: Active Orders 24 hr Category Date Time Status Patient Status [ADT] Stat ADT 01/06/19 22:53 Active Communication Order [RC] STAT Care 01/06/19 19:11 Active Non Stress Test [RC] QSHIFT Care 01/06/19 23:59 Active Notify Provider Consults [RC] ASDIRECTED Care 01/06/19 22:49 Active Consult to Physician [CONS] Stat Cons 01/06/19 22:48 Active NPO [Nothing Per Oral Diet] [DIET] Diet 01/07/19 Breakfast Active Ankle Min 3V Rt [CR] Stat Exams 01/06/19 19:11 Taken Acetaminophen [Ofirmev] 1,000 mg Med 01/07/19 00:15 Active Premix Bag 1 bag IV Q6H Lactated Ringers [Ringers, Lactated] 1,000 ml Med 01/06/19 23:45 Active IV ASDIRECTED Morphine Med 01/07/19 00:04 Active 1 - 3 mg IVPUSH Q3H PRN Sodium Chloride 0.65% [[place]odd Nasal [place]] Med 01/07/19 00:30 Active See Dose Instructions SHIVAM Q4H Sodium Chloride 0.9% [Saline Flush] Med 01/06/19 19:12 Active 10 ml FLUSH ASDIRECTED PRN Sodium Chloride 0.9% [Saline Flush] Med 01/06/19 19:12 Active 2.5 ml FLUSH ASDIRECTED PRN DME for Discharge [COMM] Stat Oth 01/06/19 22:50 Ordered Saline Lock Insert [OM.PC] Stat Oth 01/06/19 19:12 Ordered Medication Orders Lactated Ringer's (Ringers, Lactated) 1,000 mls @ 100 mls/hr IV ASDIRECTED BENJAMIN Last Admin: 01/07/19 01:33 Dose: 100 mls/hr Acetaminophen 1,000 mg/ Premix 100 mls @ 400 mls/hr IV Q6H BENJAMIN Stop: 01/07/19 12:29 Last Admin: 01/07/19 05:45 Dose: 400 mls/hr Infusion: 01/07/19 01:57 Dose: 400 mls/hr Admin: 01/07/19 01:42 Dose: 400 mls/hr Morphine Sulfate (Morphine) 1 - 3 mg IVPUSH Q3H PRN PRN Reason: Pain Last Admin: 01/07/19 04:55 Dose: 3 mg Admin: 01/07/19 02:08 Dose: 2 mg Sodium Chloride (Saline Flush) 10 ml FLUSH ASDIRECTED PRN PRN Reason: Keep Vein Open Sodium Chloride (Saline Flush) 2.5 ml FLUSH ASDIRECTED PRN PRN Reason: Keep Vein Open Sodium Chloride (Todd Nasal [place]) 0 ml SHIVAM Q4H BENJAMIN Last Admin: 01/07/19 04:54 Dose: Not Given Admin: 01/07/19 01:31 Dose: 2 spray Assessment/Plan Comment:: conservative and surgical treatment options discussed with patient. Due to unstable nature of injury, recommend ORIF of the right ankle. Procedure and postoperative course discussed. Risks of procedure include, but are not limited to, infection, n/v injury, HW irritation, nonunion, malunion, DVT, and anesthetic complications. Patient agrees to proceed. Will discuss with OB if additional precautions are needed during surgical procedure. Anticipate discharge home tomorrow when pain adequately controlled and mobilizing with PT.
[2019-01-07] MEDS ORDERED: ceFAZolin 1 GM in Premix Bag 1 BAG IV ONE (08:47)
--- NOTE | 2019-01-07 09:50 | PCM.PREANE ---
Preanesthetic Assessment - Anesthesia/Transfusion/Family Hx Anesthesia History: Prior Anesthesia Without Reaction (epidural foe ) Family History of Anesthesia Reaction: No Transfusion History: No Prior Transfusion(s) - Review of Systems General: No Symptoms Pulmonary: No Symptoms Cardiovascular: No Symptoms Gastrointestinal: No Symptoms Neurological: No Symptoms Other: Reports: None - Physical Assessment NPO Status Date: 01/06/19 O2 Sat by Pulse Oximetry: 98 Respiratory Rate: 16 Vital Signs: Last Vital Signs Temp 98.6 F 01/07/19 07:20 Pulse 101 H 01/07/19 07:20 Resp 16 01/07/19 07:20 BP 97/51 L 01/07/19 07:20 Pulse Ox 98 01/07/19 07:20 Height: 5 ft 3 in Weight: 64.864 kg ASA Class: 2 Mental Status: Alert & Oriented x3 Airway Class: Mallampati = 2 Dentition: Reports: Normal Dentition (central maxillary veneers) ROM/Head Extension: Full Lungs: Clear to Auscultation, Normal Respiratory Effort Cardiovascular: Regular Rate, Regular Rhythm - Allergies Allergies/Adverse Reactions: Allergies Allergy/AdvReac Type Severity Reaction Status Date / Time No Known Allergies Allergy Verified 01/06/19 19:17 - Blood Blood Available: No - Anesthesia Plan Pre-Op Medication Ordered: None - Acknowledgements Anesthesia Type Planned: Spinal Pt an Appropriate Candidate for the Planned Anesthesia: Yes Alternatives and Risks of Anesthesia Discussed w Pt/Guardian: Yes Pt/Guardian Understands and Agrees with Anesthesia Plan: Yes Additional Comments: PMH: 27 weeks , orthostatic syncope syndrome, fractured R ankle PLAN: spinal without sedation, monitoring in PACU, PreAnesthesia Questionnaire - Past Health History Medical/Surgical History: Denies Medical/Surgical History HEENT History: Reports: Sinusitis Cardiovascular History: Reports: Heart Murmur, Syncope, Other (See Below) Other Cardiovascular History: states "my heart beats fast when I pass out". 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: Musculoskeletal History: Reports: None Neurological History: Reports: None Psychiatric History: Reports: Anxiety, Depression, PTSD, Suicide Attempt Endocrine/Metabolic History: Reports: None Hematologic History: Reports: None Immunologic History: Reports: None Oncologic (Cancer) History: Reports: None Dermatologic History: Reports: None, Other (See Below) Other Dermatologic History: gets heat rashes and uses otc lotion - Infectious Disease History Infectious Disease History: Reports: None - Past Surgical History Head Surgeries/Procedures: Reports: None Cardiovascular Surgical History: Reports: None Respiratory Surgical History: Reports: None GI Surgical History: Reports: None Female Surgical History: Reports: Section Musculoskeletal Surgical History: Reports: None Dermatological Surgical History: Reports: None - SUBSTANCE USE Smoking Status *Q: Former Smoker Tobacco Use Within Last Twelve Months: Cigarettes Second Hand Smoke Exposure: No Recreational Drug Use History: No - HOME MEDS Home Medications: Home Meds PNV95/Ferrous Fumarate/FA [ Tablet] 1 each PO DAILY 01/06/19 [History] - CURRENT (IN HOUSE) MEDS Current Meds: Current Medications Lactated Ringer's (Ringers, Lactated) 1,000 mls @ 100 mls/hr IV ASDIRECTED BENJAMIN Last Admin: 01/07/19 01:33 Dose: 100 mls/hr Acetaminophen 1,000 mg/ Premix 100 mls @ 400 mls/hr IV Q6H B[facility]JAMIN Stop: 01/07/19 12:29 Last Admin: 01/07/19 05:45 Dose: 400 mls/hr Morphine Sulfate (Morphine) 1 - 3 mg IVPUSH Q3H PRN PRN Reason: Pain Last Admin: 01/07/19 09:40 Dose: 2 mg Sodium Chloride (Saline Flush) 10 ml FLUSH ASDIRECTED PRN PRN Reason: Keep Vein Open Sodium Chloride (Saline Flush) 2.5 ml FLUSH ASDIRECTED PRN PRN Reason: Keep Vein Open Sodium Chloride ([place] Nasal [place]) 0 ml SHIVAM Q4H [facility] Last Admin: 01/07/19 09:37 Dose: 1 spray Discontinued Medications Betamethasone Acet/Betameth SodPhos ([place] Soluspan 6 Mg/Ml) 12 mg IM ONETIME ONE Stop: 01/06/19 23:59 Last Admin: 01/07/19 02:06 Dose: 2 ml Sodium Chloride (Normal Saline) 1,000 mls @ 999 mls/hr IV STAT ONE Stop: 01/06/19 20:12 Last Admin: 01/06/19 19:28 Dose: 999 mls/hr Sodium Chloride (Normal Saline) 1,000 mls @ 125 mls/hr IV ASDIRECTED [facility] Last Admin: 01/06/19 22:54 Dose: 125 mls/hr Cefazolin Sodium/Dextrose 1 gm (/ Premix) 50 mls @ 100 mls/hr IV ONETIME ONE Stop: 01/07/19 09:16 Morphine Sulfate (Morphine) 4 mg IVPUSH ONETIME ONE Stop: 01/06/19 19:13 Last Admin: 01/06/19 19:36 Dose: 4 mg Morphine Sulfate (Morphine) 4 mg IVPUSH ONETIME ONE Stop: 01/06/19 21:21 Last Admin: 01/06/19 21:29 Dose: 4 mg Morphine Sulfate (Morphine) 4 mg IVPUSH ONETIME ONE Stop: 01/06/19 22:06 Last Admin: 01/06/19 22:17 Dose: 4 mg Morphine Sulfate (Morphine) 4 mg IVPUSH ONETIME ONE Stop: 01/06/19 22:42 Last Admin: 01/06/19 22:49 Dose: 4 mg Ondansetron HCl (Zofran) 4 mg IVPUSH ONETIME ONE Stop: 01/06/19 19:13 Last Admin: 01/06/19 19:27 Dose: 4 mg
--- NOTE | 2019-01-07 10:25 | CR ---
EXAM DATE: 01/06/19 PATIENT'S AGE: 23 Patient: ADONIS AMIN Facility: [facility] Site . Site : 1995 Study: XRay-Extremity Right ankle [id number]/11/2019 8:36:14 PM Ordering Physician: Fabiana Méndez Final Report: Indication: Right ankle pain Technique: Right ankle 3 views Comparison: None Findings: There is an oblique comminuted fracture of the lateral malleolus with posterolateral displacement of the distal fracture fragment measuring 3 millimeters with mild posterolateral angulation. There is an oblique medial malleolar fracture with 3 millimeters medial displacement of the distal fracture fragment. There is a posterior malleolar fracture with distraction of the range of 2 millimeters. There is associated prominent soft tissue swelling, especially laterally. Impression: Trimalleolar fracture of the right ankle as described above. Dictated by Barber Solis MD @ Jan 06 2019 8:58PM Signed by: Barber Solis MD @01/06/2019 9:00:25 PM (Electronic Signature) Report Signed by Proxy. DAX
--- NOTE | 2019-01-07 10:43 | PCM.SN ---
- Free Text/Narrative Note: NST this morning with good variability and accelerations. Discussed proceeding with surgery for ankle fracture repair from an OB standpoint. Plan a regional anesthesia (CBC ordered)--discussed plan with Dr Gallegos and Dr Jain (anesthesia). Reassured patient will monitor fetus in PACU. She denies contactions, vaginal bleeding or abdominal pain. Notes good movement. Received a dose of steroid for lung maturity last night, will repeat 24 hours. SCD to other lower extemity advised. Will follow from an OB standpoint.
[2019-01-07] MEDS ORDERED: Bupivacaine 0.25% 10 ML SDV ONE ×2 (14:19→17:08)
[2019-01-07] MEDS ORDERED: ceFAZolin 1 GM Vial ONE (14:23)
[2019-01-07] MEDS ORDERED: Sodium Chloride 0.9% 20 ML ONE (14:23)
[2019-01-07] MEDS ORDERED: Ondansetron 4 MG/2 ML SDV ONE (15:43)
[2019-01-07] MEDS ORDERED: fentaNYL 100 MCG/2 ML SDV ONE (15:45)
[2019-01-07] MEDS ORDERED: Glycopyrrolate 0.2 MG/ML SDV ONE (15:47)
[2019-01-07] MEDS ORDERED: ePHEDrine 50 MG/ML SDV ONE (15:47)
--- NOTE | 2019-01-07 17:22 | PCM.OPNOTE ---
- General Post-Op/Procedure Note Date of Surgery/Procedure: 01/07/19 Operative Procedure(s): ORIF R trimalleolar ankle fracture Post-Op Diagnosis: R trimalleolar ankle fracture Anesthesia Technique: Spinal Primary Surgeon: Martha Gallegos Nurse Sitter: Mayte Godinez in mLs: 10 Condition: Fair Free Text/Narrative:: tt=62 min #[id number] Intake & Output 01/07/19 01/07/19 01/07/19 06:59 14:59 22:59 Intake Total 1000 Output Total 500 Balance 500
[2019-01-07] MEDS ORDERED: diphenhydrAMINE 25 MG Cap PO PRN (17:23)
--- NOTE | 2019-01-07 17:37 | PCM.POSTAN ---
POST ANESTHESIA ASSESSMENT - MENTAL STATUS Mental Status: Alert, Oriented - VITAL SIGNS Pulse Rate: 96 SaO2: 97 Resp Rate: 16 Blood Pressure: 103/47 - RESPIRATORY Respiratory Status: Respiratory Rate WNL, Airway Patent, O2 Saturation Stable - CARDIOVASCULAR CV Status: Pulse Rate WNL, Blood Pressure Stable - GASTROINTESTINAL GI Status: No Symptoms - PAIN Pain Score: 0 - POST OP HYDRATION Hydration Status: Adequate & Stable - OBSERVATIONS Free Text/Narrative:: FHR in PACU 150's per Sarah BARILLAS RN. Pt is comfortable with not complaints.
[2019-01-07] MEDS: Docusate Sodium 100 MG Cap PO SCH (21:06)
[2019-01-08] MEDS ORDERED: Betamethasone Acetate/Betamethasone Sod Phosphate 30 MG/5 ML MDV IM ONE (00:05)
[2019-01-08] MEDS: Morphine 2 MG/ML Syringe IVPUSH PRN ×2 (01:20→08:36)
[2019-01-08] MEDS: Lactated Ringers 1,000 ML IV SCH (01:21)
[2019-01-08] MEDS: Sodium Chloride 0.65% Nasal Spray 45 ML Bottle NAS SCH ×4 (01:35→11:43)
[2019-01-08] MEDS: Acetaminophen/HYDROcodone 325-10 MG Tab PO PRN ×3 (01:58→11:41)
[2019-01-08] MEDS: Docusate Sodium 100 MG Cap PO SCH (08:37)
--- NOTE | 2019-01-08 08:59 | CR ---
EXAMINATION: Right ankle HISTORY: Reduction COMPARISON: 01/06/2019 TECHNIQUE: 3 views FINDINGS/IMPRESSION: There is screw and plate hardware fixation of the distal fibula and tibia. Position and alignment appear anatomic. Posterior malleolus fracture is minimally displaced.
--- NOTE | 2019-01-08 09:02 | PCM.PN ---
- General Info Date of Service: 01/08/19 Functional Status: Reports: Pain Controlled, Tolerating Diet, Ambulating - Review of Systems General: Reports: Fatigue. Denies: Fever, Weakness Pulmonary: Denies: Shortness of Breath Cardiovascular: Denies: Chest Pain, Palpitations, Lightheadedness Gastrointestinal: Reports: No Symptoms Genitourinary: Reports: No Symptoms Neurological: Reports: No Symptoms Psychiatric: Reports: No Symptoms - Patient Data Vitals - Most Recent: Last Vital Signs Temp 36.1 C 01/08/19 08:44 Pulse 107 H 01/08/19 08:44 Resp 16 01/08/19 08:44 BP 121/77 01/08/19 08:44 Pulse Ox 97 01/08/19 08:44 Weight - Most Recent: 64.864 kg I&O - Last 24 Hours: Intake & Output 01/07/19 01/08/19 01/08/19 22:59 06:59 14:59 Intake Total 1045 1752 Output Total 1200 1150 Balance -155 602 Lab Results Last 24 Hours: Laboratory Results - last 24 hr 01/07/19 Range/Units 10:46 WBC 10.79 (4.0-11.0) K/uL RBC 3.59 L (4.30-5.90) M/uL Hgb 11.5 L (12.0-16.0) g/dL Hct 33.6 L (36.0-46.0) % MCV 93.6 (80.0-98.0) fL MCH 32.0 (27.0-32.0) pg MCHC 34.2 (31.0-37.0) g/dL RDW Std Deviation 46.5 (28.0-62.0) fl RDW Coeff of Flo 13 (11.0-15.0) % Plt Count 193 (150-400) K/uL MPV 10.80 (7.40-12.00) fL Neut % (Auto) 93.2 H (48.0-80.0) % Lymph % (Auto) 6.4 L (16.0-40.0) % Travis % (Auto) 0.3 (0.0-15.0) % Eos % (Auto) 0.0 (0.0-7.0) % Baso % (Auto) 0.1 (0.0-1.5) % Neut # (Auto) 10.1 H (1.4-5.7) K/uL Lymph # (Auto) 0.7 (0.6-2.4) K/uL Travis # (Auto) 0.0 (0.0-0.8) K/uL Eos # (Auto) 0.0 (0.0-0.7) K/uL Baso # (Auto) 0.0 (0.0-0.1) K/uL Nucleated RBC % 0.0 /100WBC Nucleated RBCs # 0 K/uL Med Orders - Current: Current Medications Hydrocodone Bitart/Acetaminophen ([place] 325-10 Mg) 1 - 2 tab PO Q4H PRN PRN Reason: Pain Last Admin: 01/08/19 05:52 Dose: 2 tab Diphenhydramine HCl (Benadryl) 25 - 50 mg PO Q6H PRN PRN Reason: Itching Docusate Sodium (Colace) 100 mg PO BID [facility] Last Admin: 01/08/19 08:37 Dose: 100 mg Lactated Ringer's (Ringers, Lactated) 1,000 mls @ 100 mls/hr IV ASDIRECTED [facility] Last Admin: 01/08/19 01:21 Dose: 100 mls/hr Morphine Sulfate (Morphine) 1 - 3 mg IVPUSH Q3H PRN PRN Reason: Pain Last Admin: 01/08/19 08:36 Dose: 2 mg Sodium Chloride (Saline Flush) 10 ml FLUSH ASDIRECTED PRN PRN Reason: Keep Vein Open Sodium Chloride (Saline Flush) 2.5 ml FLUSH ASDIRECTED PRN PRN Reason: Keep Vein Open Sodium Chloride ([place] Nasal [place]) 0 ml SHIVAM Q4H [facility] Last Admin: 01/08/19 08:37 Dose: Not Given Discontinued Medications Betamethasone Acet/Betameth SodPhos ([place] Soluspan 6 Mg/Ml) 12 mg IM ONETIME ONE Stop: 01/06/19 23:59 Last Admin: 01/07/19 02:06 Dose: 2 ml Betamethasone Acet/Betameth SodPhos ([place] Soluspan 6 Mg/Ml) 12 mg IM ONETIME ONE Stop: 01/08/19 00:06 Last Admin: 01/08/19 01:04 Dose: 12 mg Bupivacaine HCl (Sensorcaine-Mpf 0.25%) Confirm Administered Dose 10 ml .ROUTE .STK-MED ONE Stop: 01/07/19 14:20 Bupivacaine HCl (Sensorcaine-Mpf 0.25%) Confirm Administered Dose 10 ml .ROUTE .STK-MED ONE Stop: 01/07/19 17:09 Cefazolin Sodium (Ancef) Confirm Administered Dose 1 gm .ROUTE .STK-MED ONE Stop: 01/07/19 14:24 Ephedrine Sulfate (Ephedrine Sulfate) Confirm Administered Dose 50 mg .ROUTE .STK-MED ONE Stop: 01/07/19 15:48 Fentanyl (Sublimaze) Confirm Administered Dose 100 mcg .ROUTE .STK-MED ONE Stop: 01/07/19 15:46 Glycopyrrolate (Robinul) Confirm Administered Dose 0.2 mg .ROUTE .STK-MED ONE Stop: 01/07/19 15:48 Sodium Chloride (Normal Saline) 1,000 mls @ 999 mls/hr IV STAT ONE Stop: 01/06/19 20:12 Last Admin: 01/06/19 19:28 Dose: 999 mls/hr Sodium Chloride (Normal Saline) 1,000 mls @ 125 mls/hr IV ASDIRECTED [facility] Last Admin: 01/06/19 22:54 Dose: 125 mls/hr Acetaminophen 1,000 mg/ Premix 100 mls @ 400 mls/hr IV Q6H [facility] Stop: 01/07/19 12:29 Last Admin: 01/07/19 12:54 Dose: 400 mls/hr Cefazolin Sodium/Dextrose 1 gm (/ Premix) 50 mls @ 100 mls/hr IV ONETIME ONE Stop: 01/07/19 09:16 Last Admin: 01/07/19 15:28 Dose: Not Given Sodium Chloride (Normal Saline) Confirm Administered Dose 20 mls @ as directed .ROUTE .STK-MED ONE Stop: 01/07/19 14:24 Morphine Sulfate (Morphine) 4 mg IVPUSH ONETIME ONE Stop: 01/06/19 19:13 Last Admin: 01/06/19 19:36 Dose: 4 mg Morphine Sulfate (Morphine) 4 mg IVPUSH ONETIME ONE Stop: 01/06/19 21:21 Last Admin: 01/06/19 21:29 Dose: 4 mg Morphine Sulfate (Morphine) 4 mg IVPUSH ONETIME ONE Stop: 01/06/19 22:06 Last Admin: 01/06/19 22:17 Dose: 4 mg Morphine Sulfate (Morphine) 4 mg IVPUSH ONETIME ONE Stop: 01/06/19 22:42 Last Admin: 01/06/19 22:49 Dose: 4 mg Ondansetron HCl (Zofran) 4 mg IVPUSH ONETIME ONE Stop: 01/06/19 19:13 Last Admin: 01/06/19 19:27 Dose: 4 mg Ondansetron HCl (Zofran) Confirm Administered Dose 4 mg .ROUTE .STK-MED ONE Stop: 01/07/19 15:44 - Exam General: Alert, Oriented Lungs: Normal Respiratory Effort GI/Abdominal Exam: Normal Bowel Sounds, Soft, Non-Tender Back Exam: No: CVA Tenderness (L), CVA Tenderness (R) - Problem List & Annotations (1) Trimalleolar fracture SNOMED Code(s): 808601297 Code(s): S82.853A - DISPLACED TRIMALLEOLAR FRACTURE OF UNSP LOWER LEG, INIT Status: Acute Current Visit: Yes Qualifiers: Encounter type: initial encounter Fracture type: closed Laterality: right Qualified Code(s): S82.851A - Displaced trimalleolar fracture of right lower leg, initial encounter for closed fracture - Problem List Review Problem List Initiated/Reviewed/Updated: Yes - My Orders Last 24 Hours: My Active Orders 01/07/19 21:15 Insert Rogers Catheter [Insert Urinary Catheter] [OM.PC] Q24H 01/08/19 05:30 Communication Order [RC] PER UNIT ROUTINE 01/08/19 07:00 BPP w NST [US] Routine - Assessment Assessment:: 24/11 week IUP Status post repair ankle fracture - Plan Plan:: Patient has had reassuring antepartum surveillance with reactive NSTs. Denies any vaginal bleeding, contractions or leakage of fluid. Rogers was placed last night to help keep bladder drained until ambulatory after spinal anesthesia. Removed this am. BPP/NST this morning. PT consult to help with mobilization, especially given balance concerns with ongoing .
--- NOTE | 2019-01-08 09:19 | PCM.SURGPN ---
- General Info Date of Service: 01/08/19 Date of Surgery/Procedure: 01/07/19 POD#: 1 Functional Status: Reports: Pain Controlled, Tolerating Diet, Ambulating, Urinating - Review of Systems General: Reports: No Symptoms Systems Review Comment:: pt resting comfortably in bed pain controlled has been OOB with FWW to use bathroom has been monitoring movements and states baby is as active as usual, adequate kick counts. - Patient Data Vitals - Most Recent: Last Vital Signs Temp 97.0 F 01/08/19 08:44 Pulse 107 H 01/08/19 08:44 Resp 16 01/08/19 08:44 BP 121/77 01/08/19 08:44 Pulse Ox 97 01/08/19 08:44 Weight - Most Recent: 64.864 kg I&O - Last 24 Hours: Intake & Output 01/07/19 01/08/19 01/08/19 22:59 06:59 14:59 Intake Total 1045 1752 Output Total 1200 1150 Balance -155 602 Lab Results Last 24 Hrs: Laboratory Results - last 24 hr 01/07/19 Range/Units 10:46 WBC 10.79 (4.0-11.0) K/uL RBC 3.59 L (4.30-5.90) M/uL Hgb 11.5 L (12.0-16.0) g/dL Hct 33.6 L (36.0-46.0) % MCV 93.6 (80.0-98.0) fL MCH 32.0 (27.0-32.0) pg MCHC 34.2 (31.0-37.0) g/dL RDW Std Deviation 46.5 (28.0-62.0) fl RDW Coeff of Flo 13 (11.0-15.0) % Plt Count 193 (150-400) K/uL MPV 10.80 (7.40-12.00) fL Neut % (Auto) 93.2 H (48.0-80.0) % Lymph % (Auto) 6.4 L (16.0-40.0) % [place] % (Auto) 0.3 (0.0-15.0) % Eos % (Auto) 0.0 (0.0-7.0) % Baso % (Auto) 0.1 (0.0-1.5) % Neut # (Auto) 10.1 H (1.4-5.7) K/uL Lymph # (Auto) 0.7 (0.6-2.4) K/uL [place] # (Auto) 0.0 (0.0-0.8) K/uL Eos # (Auto) 0.0 (0.0-0.7) K/uL Baso # (Auto) 0.0 (0.0-0.1) K/uL Nucleated RBC % 0.0 /100WBC Nucleated RBCs # 0 K/uL Med Orders - Current: Current Medications Hydrocodone Bitart/Acetaminophen ([place] 325-10 Mg) 1 - 2 tab PO Q4H PRN PRN Reason: Pain Last Admin: 01/08/19 05:52 Dose: 2 tab Diphenhydramine HCl (Benadryl) 25 - 50 mg PO Q6H PRN PRN Reason: Itching Docusate Sodium (Colace) 100 mg PO BID [facility] Last Admin: 01/08/19 08:37 Dose: 100 mg Lactated Ringer's (Ringers, Lactated) 1,000 mls @ 100 mls/hr IV ASDIRECTED [facility] Last Admin: 01/08/19 01:21 Dose: 100 mls/hr Morphine Sulfate (Morphine) 1 - 3 mg IVPUSH Q3H PRN PRN Reason: Pain Last Admin: 01/08/19 08:36 Dose: 2 mg Sodium Chloride (Saline Flush) 10 ml FLUSH ASDIRECTED PRN PRN Reason: Keep Vein Open Sodium Chloride (Saline Flush) 2.5 ml FLUSH ASDIRECTED PRN PRN Reason: Keep Vein Open Sodium Chloride ([place] Nasal [place]) 0 ml SHIVAM Q4H [facility] Last Admin: 01/08/19 08:37 Dose: Not Given Discontinued Medications Betamethasone Acet/Betameth SodPhos ([place] Soluspan 6 Mg/Ml) 12 mg IM ONETIME ONE Stop: 01/06/19 23:59 Last Admin: 01/07/19 02:06 Dose: 2 ml Betamethasone Acet/Betameth SodPhos ([place] Soluspan 6 Mg/Ml) 12 mg IM ONETIME ONE Stop: 01/08/19 00:06 Last Admin: 01/08/19 01:04 Dose: 12 mg Bupivacaine HCl (Sensorcaine-Mpf 0.25%) Confirm Administered Dose 10 ml .ROUTE .STK-MED ONE Stop: 01/07/19 14:20 Bupivacaine HCl (Sensorcaine-Mpf 0.25%) Confirm Administered Dose 10 ml .ROUTE .STK-MED ONE Stop: 01/07/19 17:09 Cefazolin Sodium (Ancef) Confirm Administered Dose 1 gm .ROUTE .STK-MED ONE Stop: 01/07/19 14:24 Ephedrine Sulfate (Ephedrine Sulfate) Confirm Administered Dose 50 mg .ROUTE .STK-MED ONE Stop: 01/07/19 15:48 Fentanyl (Sublimaze) Confirm Administered Dose 100 mcg .ROUTE .STK-MED ONE Stop: 01/07/19 15:46 Glycopyrrolate (Robinul) Confirm Administered Dose 0.2 mg .ROUTE .STK-MED ONE Stop: 01/07/19 15:48 Sodium Chloride (Normal Saline) 1,000 mls @ 999 mls/hr IV STAT ONE Stop: 01/06/19 20:12 Last Admin: 01/06/19 19:28 Dose: 999 mls/hr Sodium Chloride (Normal Saline) 1,000 mls @ 125 mls/hr IV ASDIRECTED [facility] Last Admin: 01/06/19 22:54 Dose: 125 mls/hr Acetaminophen 1,000 mg/ Premix 100 mls @ 400 mls/hr IV Q6H [facility] Stop: 01/07/19 12:29 Last Admin: 01/07/19 12:54 Dose: 400 mls/hr Cefazolin Sodium/Dextrose 1 gm (/ Premix) 50 mls @ 100 mls/hr IV ONETIME ONE Stop: 01/07/19 09:16 Last Admin: 01/07/19 15:28 Dose: Not Given Sodium Chloride (Normal Saline) Confirm Administered Dose 20 mls @ as directed .ROUTE .STK-MED ONE Stop: 01/07/19 14:24 Morphine Sulfate (Morphine) 4 mg IVPUSH ONETIME ONE Stop: 01/06/19 19:13 Last Admin: 01/06/19 19:36 Dose: 4 mg Morphine Sulfate (Morphine) 4 mg IVPUSH ONETIME ONE Stop: 01/06/19 21:21 Last Admin: 01/06/19 21:29 Dose: 4 mg Morphine Sulfate (Morphine) 4 mg IVPUSH ONETIME ONE Stop: 01/06/19 22:06 Last Admin: 01/06/19 22:17 Dose: 4 mg Morphine Sulfate (Morphine) 4 mg IVPUSH ONETIME ONE Stop: 01/06/19 22:42 Last Admin: 01/06/19 22:49 Dose: 4 mg Ondansetron HCl (Zofran) 4 mg IVPUSH ONETIME ONE Stop: 01/06/19 19:13 Last Admin: 01/06/19 19:27 Dose: 4 mg Ondansetron HCl (Zofran) Confirm Administered Dose 4 mg .ROUTE .STK-MED ONE Stop: 01/07/19 15:44 - Exam Wound/Incisions: Dressing Dry and Intact General: Alert, Oriented Cardiovascular: Regular Rate Extremities: Other (exam RLE - splint c/d/i, freely moves toes, cap refill <2 sec) Physical Findings Comment:: vss, afeb - Problem List & Annotations (1) Trimalleolar fracture SNOMED Code(s): 102130044 Code(s): S82.853A - DISPLACED TRIMALLEOLAR FRACTURE OF UNSP LOWER LEG, INIT Status: Acute Current Visit: Yes Qualifiers: Encounter type: initial encounter Fracture type: closed Laterality: right Qualified Code(s): S82.851A - Displaced trimalleolar fracture of right lower leg, initial encounter for closed fracture - Problem List Review Problem List Initiated/Reviewed/Updated: Yes - My Orders Last 24 Hours: Active Orders 24 hr Category Date Time Status Antiembolic Devices [RC] PER UNIT ROUTINE Care 01/07/19 17:23 Active Communication Order [RC] PER UNIT ROUTINE Care 01/08/19 05:30 Active Insert Rogers Catheter [Insert Urinary Catheter] [OM.PC] Care 01/07/19 21:15 Ordered Q24H Intake and Output [RC] Q12H Care 01/07/19 17:22 Active Neurovascular Check [RC] Q2HR Care 01/07/19 17:22 Active Ready for Discharge [RC] PER UNIT ROUTINE Care 01/08/19 09:15 Ordered Vital Signs [RC] Q4H Care 01/07/19 17:22 Active PT Evaluation and Treatment [CONS] Routine Cons 01/07/19 17:22 Active BPP w NST [US] Routine Exams 01/08/19 07:00 Ordered Acetaminophen/HYDROcodone [Groves 325-10 MG] Med 01/07/19 17:23 Active 1 - 2 tab PO Q4H PRN Docusate Sodium [Colace] Med 01/07/19 21:00 Active 100 mg PO BID diphenhydrAMINE [Benadryl] Med 01/07/19 17:23 Active 25 - 50 mg PO Q6H PRN Ice Therapy [OM.PC] Routine Oth 01/07/19 17:22 Ordered Sequential Compression Device [OM.PC] Routine Oth 01/07/19 17:22 Ordered Medication Orders Hydrocodone Bitart/Acetaminophen ([place] 325-10 Mg) 1 - 2 tab PO Q4H PRN PRN Reason: Pain Last Admin: 01/08/19 05:52 Dose: 2 tab Admin: 01/08/19 01:58 Dose: 2 tab Diphenhydramine HCl (Benadryl) 25 - 50 mg PO Q6H PRN PRN Reason: Itching Docusate Sodium (Colace) 100 mg PO BID [facility] Last Admin: 01/08/19 08:37 Dose: 100 mg Admin: 01/07/19 21:06 Dose: 100 mg Lactated Ringer's (Ringers, Lactated) 1,000 mls @ 100 mls/hr IV ASDIRECTED [facility] Last Admin: 01/08/19 01:21 Dose: 100 mls/hr Infusion: 01/07/19 21:07 Dose: 100 mls/hr Admin: 01/07/19 11:07 Dose: 100 mls/hr Infusion: 01/07/19 11:07 Dose: 100 mls/hr Admin: 01/07/19 01:33 Dose: 100 mls/hr Morphine Sulfate (Morphine) 1 - 3 mg IVPUSH Q3H PRN PRN Reason: Pain Last Admin: 01/08/19 08:36 Dose: 2 mg Admin: 01/08/19 01:20 Dose: 2 mg Admin: 01/07/19 12:51 Dose: 2 mg Admin: 01/07/19 09:40 Dose: 2 mg Admin: 01/07/19 04:55 Dose: 3 mg Admin: 01/07/19 02:08 Dose: 2 mg Sodium Chloride (Saline Flush) 10 ml FLUSH ASDIRECTED PRN PRN Reason: Keep Vein Open Sodium Chloride (Saline Flush) 2.5 ml FLUSH ASDIRECTED PRN PRN Reason: Keep Vein Open Sodium Chloride ([place] Nasal [place]) 0 ml SHIVAM Q4H [facility] Last Admin: 01/08/19 08:37 Dose: Not Given Admin: 01/08/19 04:40 Dose: Not Given Admin: 01/08/19 01:35 Dose: Not Given Admin: 01/07/19 21:04 Dose: Not Given Admin: 01/07/19 18:19 Dose: Not Given Admin: 01/07/19 13:13 Dose: 1 spray Admin: 01/07/19 09:37 Dose: 1 spray Admin: 01/07/19 04:54 Dose: Not Given Admin: 01/07/19 01:31 Dose: 2 spray - Assessment Assessment (Free Text/Narrative):: POD#1 ORIF R trimalleolar ankle fracture (medial and lateral malleolus only) - Plan Plan (Free Text/Narrative):: d/ch to home today NWB RLE with FWW pain rx written rx for FWW written follow-up with orthopedics and OB as scheduled pt verbalizes understanding and agrees.
--- NOTE | 2019-01-08 09:46 | OR ---
SURGEON: Martha Gallegos MD DATE OF PROCEDURE: 01/07/2019 PREOPERATIVE DIAGNOSIS: Right trimalleolar ankle fracture. POSTOPERATIVE DIAGNOSIS: Right trimalleolar ankle fracture. PROCEDURE: Open reduction and internal fixation of right trimalleolar ankle fracture, medial and lateral malleolus only. SLIDE MAKER: Mayte Godinez PA-C ANESTHESIA: General. ESTIMATED BLOOD LOSS: Spinal. ESTIMATED BLOOD LOSS: 10 mL. TOURNIQUET TIME: 62 minutes. COMPLICATIONS: None. DEEP VENOUS THROMBOSIS PROPHYLAXIS: PAS boot to the nonoperative leg. IMPLANTS USED: [place] 7-hole and 4-hole 1/3rd semitubular plate with combination of 3.5 mm cortical and 4.0 mm cancellous screws. BRIEF HISTORY: Rosangela is a 23-year-old female who is currently 27 weeks' . She sustained a fall, injuring her right ankle. X-rays did confirm a trimalleolar ankle fracture. Due to the unstable nature of the injury, I did recommend surgical intervention. Risks and goals of procedure were discussed with the patient and were documented preoperatively. She agreed to proceed. Preoperative OB consult was also obtained. DESCRIPTION OF PROCEDURE: The patient was properly identified and brought to the operating room. She was transferred from the OR cart and placed on the operating table in supine position. Spinal anesthetic was then administered. After adequate anesthesia was obtained, a well-padded tourniquet was applied to the right lower extremity. The right lower extremity was then prepped in standard fashion using ChloraPrep solution. It was then sterilely draped. A time-out was performed to ensure correct site and procedure. Preoperative antibiotics were given. The surgical site had been marked preoperatively. An Esmarch was used to exsanguinate the right lower extremity, and the tourniquet was inflated to 250 mmHg. An incision was made over the lateral aspect of the ankle. Subcutaneous tissues were dissected down to the level of the fracture. Care was taken to look for the superficial peroneal nerve, and this was not encountered. There was some comminution at the fracture site with a large anterior fragment at the fracture site. The fracture was also spiral in nature with a spike posteriorly. Bone reduction clamps were used to reduce the fracture. I did run a K-wire through the extra piece anteriorly for provisional fixation. A 3.5 mm cortical screw was then placed in an interfragmentary fashion using standard lag protocol. This provided good provisional fixation. I elected to proceed with the 7-hole plate. Due to the distal nature of the fracture, I was only able to get 1 screw in distally. This had excellent purchase, however. I did use a 4.0 mm cancellous screw for this. A 3.5 mm screws were used proximally. The fibula was found to be out to length with no rotational abnormality. The K-wire was then removed, and I did place an additional cancellous screw into the distal fragment from a proximal hole. I then turned my attention to the medial aspect. The fracture itself was quite vertical, and I elected to place a plate on for additional support. An incision was made over the fracture site. The fracture was opened and copiously irrigated to remove any fracture hematoma. A ball-tip spike was then used to hold the fracture in a reduced position, and a K-wire was placed through the tip of the medial malleolus for provisional fixation. I was able to visualize the medial dome of the talus and no injury was noted. A 4-hole 1/3rd semitubular plate was then placed, centered over the fracture. I was able to get 2 screws into the distal fragment and 2 screws proximally. Final C-arm images confirmed nearly anatomic reduction of the fracture with good position of the hardware. The wounds were then copiously irrigated with saline solution. It should be noted that the lateral image did show reduction of the posterior malleolus with neutral position of the ankle, and I elected to treat this conservatively. Deep tissues were closed with 0 Vicryl. Subcutaneous tissues were closed with 2-0 Monocryl, and the skin was closed with noni. Tourniquet was deflated prior to final wound closure, and no excess bleeding was noted. Xeroform gauze was placed over the wounds, and a bulky dressing was applied. She was placed in a well-padded posterior splint with medial and lateral stabilizing slabs. She was awakened from her anesthetic and transferred back to the operating room cart. She was brought to recovery room in stable condition. All needle and sponge counts were correct. AZUCENA / BOBBY /[id number]
--- NOTE | 2019-01-08 10:30 | PCM48HPAN ---
Post Anesthesia Note - EVALUATION WITHIN 48HRS OF ANESTHETIC Vital Signs in Normal Range: Yes Patient Participated in Evaluation: Yes Respiratory Function Stable: Yes Airway Patent: Yes Cardiovascular Function Stable: Yes Hydration Status Stable: Yes Pain Control Satisfactory: Yes Nausea and Vomiting Control Satisfactory: Yes Mental Status Recovered: Yes Pulse Rate: 96 Resp Rate: 16 Blood Pressure: 103/47 - COMMENTS/OBSERVATIONS Free Text/Narrative:: Denies any complaints
[2019-01-08 13:14] VITALS: BP 83/45
--- NOTE | 2019-01-08 13:50 | PCM.SN ---
- Free Text/Narrative Note: d/ch summary #[id number] Pt will require FWW while NWB s/p ORIF R trimall ankle fx. Length of need estimated 8-10 weeks. Prefer FWW over crutches due to changing center of gravity with ongoing IUP.
--- NOTE | 2019-01-08 15:18 | DISCH ---
DATE OF DISCHARGE: 01/08/2019 PRIMARY CARE PHYSICIAN: Melanie Silva M.D. ADMITTING DIAGNOSES: 1. Right trimalleolar ankle fracture. 2. 27 weeks' intrauterine . OTHER MEDICAL DIAGNOSIS: None. DISCHARGE DIAGNOSES: 1. Right trimalleolar ankle fracture. 2. 27 weeks' intrauterine . BRIEF HISTORY: Rosangela is a 23-year-old female who is currently 27 weeks . She had a fall on January 06, 2019. She complained of immediate right ankle pain. Evaluation in the Emergency Department including an x-ray showed a right trimalleolar ankle fracture. She was admitted to hospital for pain control. She was followed by Obstetric Service. Due to the nature of the fracture, surgical treatment was recommended. On January 07, 2019, the patient underwent open reduction internal fixation of right trimalleolar ankle fracture (medial and lateral malleolus), done by Dr. Martha Gallegos. This was done under spinal anesthesia. Estimated blood loss was 10 mL. Tourniquet time was 62 minutes. There were no known complications. Upon completion of the procedure, the patient was transferred to the PACU and subsequently to Med/Surg Postoperative Care. Postoperatively, the patient did well. Her pain is controlled with [place] 10/325. She is ambulating well with a wheeled walker. We prefer a walker for her due to her changes in center of gravity due to ongoing . Physical Therapy followed her throughout her hospital stay for safe mobilization. Obstetric Service followed her throughout her hospital stay as well. Her vital signs have been stable. She has been afebrile. She feels comfortable with discharge to home. DISCHARGE MEDICATIONS: [place] 10/325. DISCHARGE INSTRUCTIONS: 1. Follow up in clinic 10 to 14 days from the date of procedure. This appointment has been made for the patient. 2. Follow up with Obstetrics as scheduled. 3. Nonweightbearing to the right lower extremity, keep splint clean and dry at all times. 4. Front wheeled walker for ambulation assistance. Should she have questions or concerns prior to followup, she has been advised to contact the clinic. For complete medication reconciliation and discharge instructions, please refer back to the patient's EHR. NICKOLAS / BOBBY /[id number] MTDD
--- NOTE | 2019-01-08 15:38 | US ---
EXAMINATION: Biophysical profile HISTORY: well-being COMPARISON: 01/06/2019 TECHNIQUE: Grayscale, color Doppler, and M-mode imaging obtained. FINDINGS: Single live intrauterine within a cephalic position. Positive movement and tone is noted. Adequate breathing was not noted. Amniotic fluid index is normal. heart rate is 135 bpm. IMPRESSION: Biophysical profile 04/05.
== END 2019-01-08 14:55 | disposition home or self-care (01) ==
LOC: MW.ED 18:49 → MW.MS 22:49
PROVIDERS: ADMIT Orthopaedic Surgery; ATTEND Orthopaedic Surgery
DX: O9A.212 Injury, poisoning and certain other consequences of external causes complicating pregnancy, second trimester (principal); S82.851A Displaced trimalleolar fracture of right lower leg, initial encounter for closed fracture; W01.0XXA Fall on same level from slipping, tripping and stumbling without subsequent striking against object, initial encounter; Z3A.27 27 weeks gestation of pregnancy; Z87.891 Personal history of nicotine dependence; Z79.899 Other long term (current) drug therapy
CPT/HCPCS: 27822; 36415; 51702; 59025; 73590; 73610; 76815; 76818; 85025; 96361; 96365; 96372; 96375; 96376; 97161; 99284; A9270; C1713; G0378; J0131; J0690; J0702; J2270; J2405; J3010; J3490; J7040; J7120; 96374

== ENCOUNTER 2019-04-01 05:16 | Inpatient (IN) | payer OTHER, MEDICAID ==
[2019-04-01] MEDS ORDERED: Sodium Chloride 0.9% 2.5 ML Syringe FLUSH PRN (05:20)
[2019-04-01] MEDS ORDERED: Citric Acid/Sodium Citrate Solution 30 ML Cup PO ONE (05:20)
[2019-04-01] MEDS ORDERED: Sodium Chloride 0.9% 10 ML Syringe FLUSH PRN (05:20)
[2019-04-01] MEDS ORDERED: Sodium Chloride 0.9% 10 ML SDV IV PRN (05:20)
[2019-04-01] MEDS ORDERED: Oxytocin/0.9 % Sodium Chloride 30 UNIT/500 ML BAG IV SCH (05:30)
[2019-04-01] MEDS: Lactated Ringers 1,000 ML IV SCH ×2 (06:10→07:05)
[2019-04-01] MEDS ORDERED: Morphine PF 10 MG/10 ML SDV ONE (07:13)
--- NOTE | 2019-04-01 07:36 | PCM.PREANE ---
Preanesthetic Assessment - Anesthesia/Transfusion/Family Hx Anesthesia History: Prior Anesthesia Without Reaction Family History of Anesthesia Reaction: No Transfusion History: No Prior Transfusion(s) Intubation History: Unknown - Review of Systems General: No Symptoms Pulmonary: No Symptoms Cardiovascular: No Symptoms Gastrointestinal: No Symptoms Neurological: No Symptoms Other: Reports: None - Physical Assessment Height: 5 ft 3 in Weight: 67.132 kg ASA Class: 2 Mental Status: Alert & Oriented x3 Airway Class: Mallampati = 2 Dentition: Reports: Normal Dentition Thyro-Mental Finger Breadths: 3 Mouth Opening Finger Breadths: 3 ROM/Head Extension: Full Lungs: Clear to Auscultation, Normal Respiratory Effort Cardiovascular: Regular Rate, Regular Rhythm - Lab Values: Laboratory Last Values WBC 11.99 K/uL (4.0-11.0) H 04/01/19 06:16 RBC 4.11 M/uL (4.30-5.90) L 04/01/19 06:16 Hgb 12.7 g/dL (12.0-16.0) 04/01/19 06:16 Hct 37.9 % (36.0-46.0) 04/01/19 06:16 MCV 92.2 fL (80.0-98.0) 04/01/19 06:16 MCH 30.9 pg (27.0-32.0) 04/01/19 06:16 MCHC 33.5 g/dL (31.0-37.0) 04/01/19 06:16 RDW Std Deviation 45.2 fl (28.0-62.0) 04/01/19 06:16 RDW Coeff of Flo 14 % (11.0-15.0) 04/01/19 06:16 Plt Count 206 K/uL (150-400) 04/01/19 06:16 MPV 11.70 fL (7.40-12.00) 04/01/19 06:16 Nucleated RBC % 0.0 /100WBC 04/01/19 06:16 Nucleated RBCs # 0 K/uL 04/01/19 06:16 Blood Type A POSITIVE 04/01/19 06:16 Antibody Screen NEGATIVE 04/01/19 06:16 - Allergies Allergies/Adverse Reactions: Allergies Allergy/AdvReac Type Severity Reaction Status Date / Time No Known Allergies Allergy Verified 05/30/19 12:51 - Blood Blood Available: No - Anesthesia Plan Pre-Op Medication Ordered: None - Acknowledgements Anesthesia Type Planned: Spinal (general anesthesia bacl-up) Pt an Appropriate Candidate for the Planned Anesthesia: Yes Alternatives and Risks of Anesthesia Discussed w Pt/Guardian: Yes Pt/Guardian Understands and Agrees with Anesthesia Plan: Yes PreAnesthesia Questionnaire - Past Health History Medical/Surgical History: Denies Medical/Surgical History HEENT History: Reports: Allergic Rhinitis, Sinusitis Other HEENT History: wears contacts Cardiovascular History: Reports: Arrhythmia, Syncope, Other (See Below) Other Cardiovascular History: almost every day palpitations, states "my heart beats fast when I pass out". orthotyclic hypertension syncope Respiratory History: Reports: None, Other (See Below) Other Respiratory History: has inhaler for chest tightness but has not used since , difficulty breathing during heart palpatations. 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" [employer] History: Reports: Musculoskeletal History: Reports: Fracture Neurological History: Reports: Migraines Psychiatric History: Reports: Anxiety, Depression, PTSD, Suicide Attempt Endocrine/Metabolic History: Reports: None Hematologic History: Reports: Iron Deficiency Immunologic History: Reports: None Oncologic (Cancer) History: Reports: None Dermatologic History: Reports: None Other Dermatologic History: gets heat rashes and uses otc lotion - Infectious Disease History Infectious Disease History: Reports: Influenza, Other (See Below) Other Infectious Disease History: H1N1 in 2008 - Past Surgical History Head Surgeries/Procedures: Reports: None HEENT Surgical History: Reports: None Cardiovascular Surgical History: Reports: None Respiratory Surgical History: Reports: None GI Surgical History: Reports: None Female Surgical History: Reports: Section Endocrine Surgical History: Reports: None Neurological Surgical History: Reports: None Musculoskeletal Surgical History: Reports: ORIF Other Musculoskeletal Surgeries/Procedures:: ORIF fx rt ankle with hardware Oncologic Surgical History: Reports: None Dermatological Surgical History: Reports: None - SUBSTANCE USE Smoking Status *Q: Former Smoker Tobacco Use Within Last Twelve Months: Cigarettes Second Hand Smoke Exposure: No Recreational Drug Use History: No - HOME MEDS Home Medications: Home Meds PNV95/Ferrous Fumarate/FA [ Tablet] 1 each PO DAILY 01/06/19 [History] Iron,Carbonyl/Ascorbic Acid [Iron 100-Vitamin C Tablet] 1 tab PO DAILY 03/27/19 [History] - CURRENT (IN HOUSE) MEDS Current Meds: Current Medications Lactated Ringer's (Ringers, Lactated) 1,000 mls @ 500 mls/hr IV BOLUS [facility] Last Admin: 04/01/19 07:05 Dose: 500 mls/hr Oxytocin/Sodium Chloride (Oxytocin 30 Unit/500 Ml-Ns) 30 unit in 500 mls @ 250 mls/hr IV TITRATE [facility] Cefazolin Sodium/Dextrose 1 gm (/ Premix) 50 mls @ 100 mls/hr IV ONETIME ONE Stop: 04/01/19 08:14 Sodium Chloride (Saline Flush) 10 ml FLUSH ASDIRECTED PRN PRN Reason: Keep Vein Open Sodium Chloride (Saline Flush) 2.5 ml FLUSH ASDIRECTED PRN PRN Reason: Keep Vein Open Sodium Chloride (Normal Saline) 10 ml IV ASDIRECTED PRN PRN Reason: IV Use Discontinued Medications Citric Acid/Sodium Citrate (Bicitra Solution) 30 ml PO ONETIME ONE Stop: 04/01/19 05:21 Morphine Sulfate (Duramorph Pf) Confirm Administered Dose 10 mg .ROUTE .STK-MED ONE Stop: 04/01/19 07:14
[2019-04-01] MEDS ORDERED: ceFAZolin 1 GM in Premix Bag 1 BAG IV ONE (07:45)
[2019-04-01] MEDS ORDERED: Phenylephrine/Normal Saline 100 MCG/ML 10 ML Syringe ONE (08:26)
[2019-04-01] MEDS ORDERED: Ondansetron 4 MG/2 ML SDV ONE (08:26)
[2019-04-01] MEDS ORDERED: ePHEDrine 50 MG/ML SDV ONE (08:26)
[2019-04-01] MEDS ORDERED: Sodium Chloride 0.9% 20 ML ONE (08:26)
[2019-04-01] MEDS ORDERED: Meperidine PF 25 MG/ML Syringe ONE (08:29)
[2019-04-01] MEDS ORDERED: Aluminum Hydroxide/Magnesium Hydroxide/Simethicone Susp 30 ML Cup PO PRN (08:44)
[2019-04-01] MEDS ORDERED: Ondansetron 4 MG/2 ML SDV IVPUSH PRN ×2 (08:44→09:00)
[2019-04-01] MEDS ORDERED: Acetaminophen/oxyCODONE 325-5 MG Tab PO PRN ×2 (08:44→09:00)
[2019-04-01] MEDS ORDERED: Lanolin 100% Cream 7 GM Tube TOP PRN (08:44)
[2019-04-01] MEDS ORDERED: Bisacodyl 10 MG Supp RECTAL PRN (08:44)
[2019-04-01] MEDS ORDERED: diphenhydrAMINE 50 MG/ML SDV IVPUSH PRN (08:44)
[2019-04-01] MEDS ORDERED: Lactated Ringers 1,000 ML IV SCH (08:45)
--- NOTE | 2019-04-01 08:52 | PCM.OPNOTE ---
- General Post-Op/Procedure Note Date of Surgery/Procedure: 04/01/19 Operative Procedure(s): Repeat LTCS Findings: Viable male APGARs 9, 9 weight 2220 gm. Intact placenta with 3V cord. Normal appearing pelvis Pre Op Diagnosis: 39 week IUP. Previous c section, desires repeat Post-Op Diagnosis: Same Anesthesia Technique: Spinal Primary Surgeon: Melanie Silva Child Development Instructor: Ruchi Mendoza Fluid Replacement, Intraop: 2,500 EBL in mLs: 400 Complications: none known Condition: Good Free Text/Narrative:: [id number]
[2019-04-01] MEDS ORDERED: Nalbuphine 10 MG/1 ML Vial IVPUSH PRN (09:00)
[2019-04-01] MEDS ORDERED: fentaNYL 100 MCG/2 ML SDV IVPUSH PRN (09:00)
[2019-04-01] MEDS ORDERED: Naloxone 0.4 MG/ML Syringe IVPUSH PRN (09:00)
[2019-04-01] MEDS: Ketorolac 30 MG/ML SDV IVPUSH SCH ×3 (09:07→21:13)
[2019-04-01] MEDS: diphenhydrAMINE 50 MG/ML SDV IVPUSH PRN (10:28)
--- NOTE | 2019-04-01 16:42 | OR ---
SURGEON: Melanie Silva M.D. DATE OF PROCEDURE: 04/01/2019 PREOPERATIVE DIAGNOSES: 1. 39 weeks' intrauterine . 2. Previous section, desires repeat. POSTOPERATIVE DIAGNOSES: 1. 39 weeks' intrauterine . 2. Previous section, desires repeat. PROCEDURE: Repeat low-transverse section. DONATION WORKER: Jaimee Mendoza. ANESTHESIA: Spinal. ESTIMATED BLOOD LOSS: 400 mL. FLUIDS: 2500 mL of crystalloid. COMPLICATIONS: None. FINDINGS: Viable male. Apgars 9 at one minute and 9 at five minutes. Weight 2220 g. Intact placenta. Three-vessel cord. Normal-appearing pelvis. DISPOSITION: The patient to PACU, to nursery in stable condition. PROCEDURE DETAILS: Rosangela is a 23-year-old G2, P1 at 39 weeks' gestational age who presents today for scheduled repeat delivery. Risks of procedure have been discussed. Proper consent obtained. The patient was taken to the operating room where she underwent spinal anesthetic, was placed up in the dorsal supine position with leftward tilt. SCDs to lower extremities, Rogers to gravity, was prepped and draped in the usual sterile fashion. A time-out was performed. Anesthesia was tested, found to be adequate. Previous Pfannenstiel scar was now excised. Subcutaneous tissue was incised down to the level of rectus fascia which was incised in midline, lateralized on either side sharply and bluntly. The superior aspect of the fascia was tented upwards, dissected sharply and bluntly from underlying muscles. Similar aspect was performed from the inferior aspect of fascia. Rectus muscle was in midline. Peritoneum was entered. Rectus muscle and peritoneum were lateralized bluntly. Uterine position palpated. Self-retaining retractor was gently placed. Uterovesical reflection was visualized. Bladder flap was created sharply and bluntly. Bladder was mobilized away from the lower uterine segment. Low transverse hysterotomy was performed in uterine cavity using blunt end of scalpel. Hysterotomy lateralized bluntly. Amniotomy was performed. Clear fluid was returned. The infant's head was flexed. Fundal pressure was applied. The 's head was delivered followed by anterior shoulder, posterior shoulder, and remaining of body without difficulty. The 's oropharynx and nares were bulb suctioned. Loose nuchal cord x1 was reduced manually. The cord was clamped x2 and cut. was handed off to attending nursery staff. Cord arterial, cord venous, and cord blood sampling were obtained. Light pressure was applied while the placenta now was delivered. Uterine cavity was cleared of all clot and debris. Hysterotomy was repaired using 0 Vicryl in continuous running locked fashion followed by a re-imbricating layer. In the left lateral side, there was an area of oozing that was replicated with [id number] suture. Hemostasis was thereafter evident. Posterior aspect of the uterus was inspected. No defects or hematomas found be forming. Region was well irrigated, suction dried. Uterus returned to the abdominal cavity. Colonic gutters were cleared of all clot and debris, well irrigated and suction dried. Hysterotomy was again inspected. Any areas of serosal bleeding were now cauterized. The self-retaining tractor was gently removed. Bladder blade was now placed. Hysterotomy was again inspected, found to be hemostatic. The bladder blade was now removed. Rectus muscle and peritoneum were reapproximated using 0 Vicryl with inverted mattress suture technique. Anterior aspect of the muscle, posterior aspect of the fascia were closely inspected. Any areas of oozing were cauterized. The rectus fascia was reapproximated using 0 Vicryl in continuous running fashion beginning laterally on each side and meeting in the midline. Subcutaneous tissue was well irrigated, suction dried. Any areas of oozing were cauterized. The skin edges were reapproximated using 3- 0 Monocryl and a Daniel needle in subcuticular fashion followed by re-imbricating the incision with half-inch Steri-Strips and Mastisol. Uterus remained firm. Sponge, instrument, and needle counts correct x2. Hemostasis evident. The patient will go to PACU in stable condition, infant to nursery. NICOLE / BOBBY /[id number]
[2019-04-01] MEDS: Simethicone 80 MG Tab.Chew PO SCH (18:33)
[2019-04-01] MEDS: Docusate Sodium 100 MG Cap PO SCH (21:15)
[2019-04-02] MEDS: Ketorolac 30 MG/ML SDV IVPUSH SCH ×2 (04:16→09:20)
[2019-04-02] MEDS: diphenhydrAMINE 50 MG/ML SDV IVPUSH PRN (04:52)
[2019-04-02] MEDS: Simethicone 80 MG Tab.Chew PO SCH ×6 (05:28→23:09)
--- NOTE | 2019-04-02 08:40 | PCM.PNPP ---
- General Info Date of Service: 04/02/19 Functional Status: Reports: Pain Controlled, Tolerating Diet, Ambulating, Urinating - Review of Systems General: Reports: Fatigue. Denies: Fever, Weakness Pulmonary: Denies: Shortness of Breath Cardiovascular: Denies: Chest Pain, Palpitations, Lightheadedness Gastrointestinal: Denies: Abdominal Pain, Nausea, Vomiting Genitourinary: Denies: Flank Pain Musculoskeletal: Reports: No Symptoms Skin: Reports: No Symptoms Neurological: Reports: No Symptoms Psychiatric: Reports: No Symptoms - General Info Date of Service: 04/02/19 - Patient Data Vital Signs - Most Recent: Last Vital Signs Temp 36.5 C 04/02/19 07:15 Pulse 65 04/02/19 07:15 Resp 16 04/02/19 07:15 BP 98/56 L 04/02/19 07:15 Pulse Ox 97 04/02/19 07:15 Weight - Most Recent: 67.132 kg I&O - Last 24 Hours: Intake & Output 04/01/19 04/02/19 04/02/19 22:59 06:59 14:59 Intake Total 1066 1000 Output Total 1750 1100 Balance -684 -100 Lab Results - Last 24 Hours: Laboratory Results - last 24 hr 04/01/19 04/02/19 Range/Units 08:09 05:05 Hgb 10.3 L (12.0-16.0) g/dL Hct 31.3 L (36.0-46.0) % Cord ABG pH 7.205 (7.18-7.38) Cord ABG Base Excess -9 (-10--2) Cord VBG pH 7.292 (7.25-7.45) Cord VBG Base Excess -8 (-10--2) Med Orders - Current: Current Medications Al Hydroxide/Mg Hydroxide (Mag-Al Plus) 30 ml PO Q8H PRN PRN Reason: Heartburn Bisacodyl (Dulcolax) 10 mg RECTAL ONETIME PRN PRN Reason: Constipation Diphenhydramine HCl (Benadryl) 25 mg IVPUSH Q6H PRN PRN Reason: Itching or Nausea Diphenhydramine HCl (Benadryl) 25 mg IVPUSH Q4H PRN PRN Reason: Itching Stop: 04/02/19 09:00 Last Admin: 04/02/19 04:52 Dose: 25 mg Docusate Sodium (Colace) 100 mg PO BID [facility] Last Admin: 04/01/19 21:15 Dose: 100 mg Emollient Ointment (Lansinoh Hpa) 0 gm TOP ASDIRECTED PRN PRN Reason: Sore Nipples Fentanyl (Sublimaze) 50 mcg IVPUSH Q1H PRN PRN Reason: Pain (severe 7-10) Lactated Ringer's (Ringers, Lactated) 1,000 mls @ 500 mls/hr IV BOLUS [facility] Last Admin: 04/01/19 07:05 Dose: 500 mls/hr Oxytocin/Sodium Chloride (Oxytocin 30 Unit/500 Ml-Ns) 30 unit in 500 mls @ 250 mls/hr IV TITRATE [facility] Lactated Ringer's (Ringers, Lactated) 1,000 mls @ 125 mls/hr IV ASDIRECTED [facility] Ibuprofen (Motrin) 800 mg PO Q8H PRN PRN Reason: mild pain or fever Ketorolac Tromethamine (Toradol) 30 mg IVPUSH Q6H [facility] Stop: 04/02/19 08:46 Last Admin: 04/02/19 04:16 Dose: 30 mg Nalbuphine HCl (Nubain) 5 mg IVPUSH ASDIRECTED PRN PRN Reason: Itching Naloxone HCl (Narcan) 0.1 mg IVPUSH ONETIME PRN PRN Reason: Respiratory Depression Stop: 04/02/19 09:00 Ondansetron HCl (Zofran) 4 mg IVPUSH Q4H PRN PRN Reason: Nausea/Vomiting Ondansetron HCl (Zofran) 4 mg IVPUSH Q6H PRN PRN Reason: Nausea Oxycodone/Acetaminophen (Percocet 325-5 Mg) 1 tab PO Q4H PRN PRN Reason: Pain (moderate 4-6) Oxycodone/Acetaminophen (Percocet 325-5 Mg) 2 tab PO Q4H PRN PRN Reason: Pain (moderate 4-6) Oxycodone/Acetaminophen (Percocet 325-5 Mg) 2 tab PO Q6H PRN PRN Reason: Pain (moderate 4-6) Simethicone (Simethicone) 160 mg PO QID [facility] Last Admin: 04/02/19 05:28 Dose: 160 mg Sodium Chloride (Saline Flush) 10 ml FLUSH ASDIRECTED PRN PRN Reason: Keep Vein Open Sodium Chloride (Saline Flush) 2.5 ml FLUSH ASDIRECTED PRN PRN Reason: Keep Vein Open Sodium Chloride (Normal Saline) 10 ml IV ASDIRECTED PRN PRN Reason: IV Use Discontinued Medications Citric Acid/Sodium Citrate (Bicitra Solution) 30 ml PO ONETIME ONE Stop: 04/01/19 05:21 Last Admin: 04/01/19 07:39 Dose: 30 ml Ephedrine Sulfate (Ephedrine Sulfate) Confirm Administered Dose 50 mg .ROUTE .STK-MED ONE Stop: 04/01/19 08:27 Cefazolin Sodium/Dextrose 1 gm (/ Premix) 50 mls @ 100 mls/hr IV ONETIME ONE Stop: 04/01/19 08:14 Sodium Chloride (Normal Saline) Confirm Administered Dose 20 mls @ as directed .ROUTE .STK-MED ONE Stop: 04/01/19 08:27 Cefazolin Sodium/Dextrose (Ancef) Confirm Administered Dose 50 mls @ as directed .ROUTE .STK-MED ONE Stop: 04/01/19 08:28 Meperidine HCl (Demerol) Confirm Administered Dose 25 mg .ROUTE .STK-MED ONE Stop: 04/01/19 08:30 Morphine Sulfate (Duramorph Pf) Confirm Administered Dose 10 mg .ROUTE .STK-MED ONE Stop: 04/01/19 07:14 Ondansetron HCl (Zofran) Confirm Administered Dose 4 mg .ROUTE .STK-MED ONE Stop: 04/01/19 08:27 Phenylephrine HCl (Phenylephrine In Ns 100 Mcg/Ml) Confirm Administered Dose 1 mg .ROUTE .STK-MED ONE Stop: 04/01/19 08:27 - Interaction Support Person: Significant Other - Recovery Exam Fundal Tone: Firm Fundal Level: 2 Fingerbreadths Below Umbilicus Fundal Placement: Midline Lochia Amount: Scant Lochia Color: Rubra/Red Perineum Description: Intact, Minimal Bruising/Swelling Episiotomy/Laceration: None Bladder Status: Indwelling Catheter in Place Urinary Elimination: Indwelling Catheter - Exam General: Alert, Oriented Lungs: Normal Respiratory Effort Cardiovascular: Regular Rate, Regular Rhythm GI/Abdominal Exam: Normal Bowel Sounds, Soft Extremities: Pedal Edema (1+). No: Corky's Sign Skin: Warm, Dry, Intact Wound/Incisions: Healing Well, No Drainage. No: Erythema Neurological: No New Focal Deficit Psy/Mental Status: Alert, Normal Affect, Normal Mood - Problem List & Annotations (1) Status post repeat low transverse section SNOMED Code(s): 475743145, 10309094, 614436525, 903535543, 325554112 Code(s): Z98.891 - HISTORY OF UTERINE SCAR FROM PREVIOUS SURGERY Status: Acute Current Visit: Yes - Problem List Review Problem List Initiated/Reviewed/Updated: Yes - My Orders Last 24 Hours: My Active Orders 04/01/19 08:44 Patient Status [ADT] Routine Ambulate [RC] PER UNIT ROUTINE Antiembolic Devices [RC] PER UNIT ROUTINE Communication Order [RC] PER UNIT ROUTINE Communication Order [RC] PER UNIT ROUTINE Communication Order [RC] Per Unit Routine May Shower [RC] ASDIRECTED Notify Provider Intake and Out [RC] ASDIRECTED Notify Provider Vital Signs [RC] ASDIRECTED RT Incentive Spirometry [RC] Q2HWA Vital Signs [RC] PER UNIT ROUTINE Acetaminophen/oxyCODONE [Percocet 325-5 MG] 1 tab PO Q4H PRN Acetaminophen/oxyCODONE [Percocet 325-5 MG] 2 tab PO Q4H PRN Alum Hydrox/Mag Hydrox/Simeth [Mag-Al Plus] 30 ml PO Q8H PRN Bisacodyl [Dulcolax] 10 mg RECTAL ONETIME PRN Ibuprofen [Motrin] 800 mg PO Q8H PRN Lanolin [Lansinoh HPA] See Dose Instructions TOP ASDIRECTED PRN Ondansetron [Zofran] 4 mg IVPUSH Q4H PRN diphenhydrAMINE [Benadryl] 25 mg IVPUSH Q6H PRN Abdominal Binder [OM.PC] Routine Assess Lochia [WOMSER] Per Unit Routine Assess Uterine Involution [WOMSER] Per Unit Routine Breast Pump [WOMSER] Per Unit Routine Heat Therapy [OM.PC] Routine Ice Therapy [OM.PC] Routine Peripheral IV Discontinue [OM.PC] Routine Sequential Compression Device [OM.PC] Per Unit Routine 04/01/19 08:45 Ketorolac [Toradol] 30 mg IVPUSH Q6H Lactated Ringers [Ringers, Lactated] 1,000 ml IV ASDIRECTED 04/01/19 09:00 Docusate Sodium [Colace] 100 mg PO BID 04/01/19 12:00 Simethicone 160 mg PO QID 04/01/19 Lunch Regular Diet [DIET] - Assessment Assessment:: POD 1 status post repeat c section - Plan Plan:: VS are stable, labs reassuring Patient is doing well overall and wearing her boot when ambulating. Continue postoperative cares.
[2019-04-02] MEDS: Docusate Sodium 100 MG Cap PO SCH ×3 (09:18→23:00)
--- NOTE | 2019-04-02 10:19 | PCM48HPAN ---
Post Anesthesia Note - EVALUATION WITHIN 48HRS OF ANESTHETIC Vital Signs in Normal Range: Yes Patient Participated in Evaluation: Yes Respiratory Function Stable: Yes Airway Patent: Yes Cardiovascular Function Stable: Yes Hydration Status Stable: Yes Pain Control Satisfactory: Yes Nausea and Vomiting Control Satisfactory: Yes Mental Status Recovered: Yes Resp Rate: 16
[2019-04-02] MEDS: Acetaminophen/oxyCODONE 325-5 MG Tab PO PRN (17:42)
[2019-04-02] MEDS: Ibuprofen 800 MG Tab PO PRN (23:00)
[2019-04-03] MEDS: Acetaminophen/oxyCODONE 325-5 MG Tab PO PRN (05:08)
[2019-04-03] MEDS: Simethicone 80 MG Tab.Chew PO SCH (06:09)
[2019-04-03 07:59] VITALS: BP 101/76
--- NOTE | 2019-04-03 08:49 | PCM.PNPP ---
- General Info Date of Service: 04/03/19 Functional Status: Reports: Pain Controlled, Tolerating Diet, Ambulating, Urinating - Review of Systems General: Reports: Fatigue. Denies: Fever, Weakness Pulmonary: Denies: Shortness of Breath Cardiovascular: Denies: Chest Pain, Palpitations, Lightheadedness Gastrointestinal: Reports: Flatus. Denies: Abdominal Pain, Nausea, Vomiting Genitourinary: Reports: No Symptoms Musculoskeletal: Reports: No Symptoms Skin: Reports: No Symptoms Neurological: Reports: No Symptoms Psychiatric: Reports: No Symptoms - General Info Date of Service: 04/03/19 - Patient Data Vital Signs - Most Recent: Last Vital Signs Temp 36.3 C 04/03/19 07:40 Pulse 61 04/03/19 07:40 Resp 16 04/03/19 07:40 BP 101/76 04/03/19 07:40 Pulse Ox 97 04/03/19 07:40 Weight - Most Recent: 67.132 kg Med Orders - Current: Current Medications Al Hydroxide/Mg Hydroxide (Mag-Al Plus) 30 ml PO Q8H PRN PRN Reason: Heartburn Bisacodyl (Dulcolax) 10 mg RECTAL ONETIME PRN PRN Reason: Constipation Diphenhydramine HCl (Benadryl) 25 mg IVPUSH Q6H PRN PRN Reason: Itching or Nausea Docusate Sodium (Colace) 100 mg PO BID [facility] Last Admin: 04/02/19 23:00 Dose: 100 mg Emollient Ointment (Lansinoh Hpa) 0 gm TOP ASDIRECTED PRN PRN Reason: Sore Nipples Fentanyl (Sublimaze) 50 mcg IVPUSH Q1H PRN PRN Reason: Pain (severe 7-10) Lactated Ringer's (Ringers, Lactated) 1,000 mls @ 500 mls/hr IV BOLUS [facility] Last Admin: 04/01/19 07:05 Dose: 500 mls/hr Oxytocin/Sodium Chloride (Oxytocin 30 Unit/500 Ml-Ns) 30 unit in 500 mls @ 250 mls/hr IV TITRATE [facility] Lactated Ringer's (Ringers, Lactated) 1,000 mls @ 125 mls/hr IV ASDIRECTED [facility] Ibuprofen (Motrin) 800 mg PO Q8H PRN PRN Reason: mild pain or fever Last Admin: 04/02/19 23:00 Dose: 800 mg Nalbuphine HCl (Nubain) 5 mg IVPUSH ASDIRECTED PRN PRN Reason: Itching Ondansetron HCl (Zofran) 4 mg IVPUSH Q4H PRN PRN Reason: Nausea/Vomiting Ondansetron HCl (Zofran) 4 mg IVPUSH Q6H PRN PRN Reason: Nausea Oxycodone/Acetaminophen (Percocet 325-5 Mg) 1 tab PO Q4H PRN PRN Reason: Pain (moderate 4-6) Last Admin: 04/03/19 05:08 Dose: 1 tab Oxycodone/Acetaminophen (Percocet 325-5 Mg) 2 tab PO Q4H PRN PRN Reason: Pain (moderate 4-6) Last Admin: 04/02/19 23:02 Dose: 2 tab Oxycodone/Acetaminophen (Percocet 325-5 Mg) 2 tab PO Q6H PRN PRN Reason: Pain (moderate 4-6) Simethicone (Simethicone) 160 mg PO QID [facility] Last Admin: 04/03/19 06:09 Dose: 160 mg Sodium Chloride (Saline Flush) 10 ml FLUSH ASDIRECTED PRN PRN Reason: Keep Vein Open Sodium Chloride (Saline Flush) 2.5 ml FLUSH ASDIRECTED PRN PRN Reason: Keep Vein Open Sodium Chloride (Normal Saline) 10 ml IV ASDIRECTED PRN PRN Reason: IV Use Discontinued Medications Citric Acid/Sodium Citrate (Bicitra Solution) 30 ml PO ONETIME ONE Stop: 04/01/19 05:21 Last Admin: 04/01/19 07:39 Dose: 30 ml Diphenhydramine HCl (Benadryl) 25 mg IVPUSH Q4H PRN PRN Reason: Itching Stop: 04/02/19 09:00 Last Admin: 04/02/19 04:52 Dose: 25 mg Ephedrine Sulfate (Ephedrine Sulfate) Confirm Administered Dose 50 mg .ROUTE .STK-MED ONE Stop: 04/01/19 08:27 Cefazolin Sodium/Dextrose 1 gm (/ Premix) 50 mls @ 100 mls/hr IV ONETIME ONE Stop: 04/01/19 08:14 Last Admin: 04/02/19 09:18 Dose: Not Given Sodium Chloride (Normal Saline) Confirm Administered Dose 20 mls @ as directed .ROUTE .STK-MED ONE Stop: 04/01/19 08:27 Cefazolin Sodium/Dextrose (Ancef) Confirm Administered Dose 50 mls @ as directed .ROUTE .STK-MED ONE Stop: 04/01/19 08:28 Ketorolac Tromethamine (Toradol) 30 mg IVPUSH Q6H [facility] Stop: 04/02/19 08:46 Last Admin: 04/02/19 09:20 Dose: 30 mg Meperidine HCl (Demerol) Confirm Administered Dose 25 mg .ROUTE .STK-MED ONE Stop: 04/01/19 08:30 Morphine Sulfate (Duramorph Pf) Confirm Administered Dose 10 mg .ROUTE .STK-MED ONE Stop: 04/01/19 07:14 Naloxone HCl (Narcan) 0.1 mg IVPUSH ONETIME PRN PRN Reason: Respiratory Depression Stop: 04/02/19 09:00 Ondansetron HCl (Zofran) Confirm Administered Dose 4 mg .ROUTE .STK-MED ONE Stop: 04/01/19 08:27 Phenylephrine HCl (Phenylephrine In Ns 100 Mcg/Ml) Confirm Administered Dose 1 mg .ROUTE .STK-MED ONE Stop: 04/01/19 08:27 - Infant Interaction Support Person: Significant Other - Recovery Exam Fundal Tone: Firm Fundal Level: 1 Fingerbreadths Below Umbilicus Fundal Placement: Midline Lochia Amount: Scant Lochia Color: Rubra/Red Perineum Description: Intact, Minimal Bruising/Swelling Episiotomy/Laceration: None Bladder Status: Voiding Urinary Elimination: Voided - Exam General: Alert, Oriented Lungs: Normal Respiratory Effort Cardiovascular: Regular Rate, Regular Rhythm GI/Abdominal Exam: Normal Bowel Sounds, Soft, No Distention Extremities: Pedal Edema (trace). No: Corky's Sign, Mottled, Pallor Skin: Warm, Dry, Intact Wound/Incisions: Healing Well, No Drainage. No: Erythema Neurological: No New Focal Deficit Psy/Mental Status: Alert, Normal Affect, Normal Mood - Problem List & Annotations (1) Status post repeat low transverse section SNOMED Code(s): 951960184, 48586473, 736565705, 122913821, 325701492 Code(s): Z98.891 - HISTORY OF UTERINE SCAR FROM PREVIOUS SURGERY Status: Acute Current Visit: Yes - Problem List Review Problem List Initiated/Reviewed/Updated: Yes - My Orders Last 24 Hours: My Active Orders 04/03/19 08:44 Ready for Discharge [RC] PER UNIT ROUTINE - Assessment Assessment:: POD 2 status post repeat c section - Plan Plan:: Doing well overall.Ambulation is actually going quite well. She continues to wear her boot. Discharge to home today. Discharge instructions reviewed. Infection and bleeding warnings reviewed. Follow up at [facility] 2 and 6 weeks.
[2019-04-03] MEDS: Ibuprofen 800 MG Tab PO PRN (09:29)
[2019-04-03] MEDS: Docusate Sodium 100 MG Cap PO SCH (09:30)
== END 2019-04-03 11:00 | disposition home or self-care (01) | DRG 788 ==
LOC: UNDOADMIN 05:16 → MW.OB 05:16
PROVIDERS: ADMIT Obstetrics & Gynecology; ATTEND Obstetrics & Gynecology
PROC: 10D00Z1 Extraction of Products of Conception, Low, Open Approach (ICD-10-PCS; principal; 2019-04-01)
DX: O34.211 Maternal care for low transverse scar from previous cesarean delivery (principal); Z87.891 Personal history of nicotine dependence; Z3A.39 39 weeks gestation of pregnancy; Z37.0 Single live birth
CPT/HCPCS: 36415; 59025; 82803; 85014; 85018; 85027; 86850; 86900; 86901; A9270-GY; J0690; J1200; J1885; J2175; J2270; J2370; J2405; J7120

== ENCOUNTER 2019-11-08 18:04 | Emergency (ER) | payer OTHER, MEDICAID ==
--- NOTE | 2019-11-08 18:27 | EDM.PDOC ---
ED HPI GENERAL MEDICAL PROBLEM - General Chief Complaint: General Stated Complaint: HEAD HURTING Time Seen by Provider: 11/08/19 18:27 Source of Information: Reports: Patient History Limitations: Reports: No Limitations - History of Present Illness INITIAL COMMENTS - FREE TEXT/NARRATIVE: HISTORY AND PHYSICAL: History of present illness: Patient is a 23-year-old female presents to the ED with complaint of pre- syncopal episode. 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 She states that she like she was going to pass out but did not have any syncopal episodes. She reports history of PVCs and POTS. She denies chest pain, shortness of breath, palpitations. She states that she is currently on an antibiotic for sinus and ear infection. Review of systems: As per history of present illness and below otherwise all systems reviewed and negative. Past medical history: As per history of present illness and as reviewed below otherwise noncontributory. Surgical history: As per history of present illness and as reviewed below otherwise noncontributory. Social history: No reported history of drug or alcohol abuse. Family history: As per history of present illness and as reviewed below otherwise noncontributory. Physical exam: General: Patient sitting comfortably in no acute distress and nontoxic appearing HEENT: Atraumatic, normocephalic, pupils reactive, negative for conjunctival pallor or scleral icterus, mucous membranes moist, throat clear, neck supple, nontender, trachea midline. No meningeal signs. Lungs: Clear to auscultation, breath sounds equal bilaterally, chest nontender. Heart: S1S2, regular, negative for clicks, rubs, or overt murmur. Abdomen: Soft, nondistended, nontender. Negative for masses or hepatosplenomegaly. Negative for costovertebral tenderness. No rigidity, rebound , guarding. Pelvis: Stable nontender. Genitourinary: Deferred. Rectal: Deferred. Extremities: Atraumatic, negative for cords or calf pain. Neurovascular unremarkable. Neuro: Awake, alert, oriented. Cranial nerves II through XII unremarkable. Cerebellum unremarkable. Motor and sensory unremarkable throughout. Exam nonfocal. Notes: Diagnostics: EKG Therapeutics: none Prescriptions: none Impression: Pre-syncope Plan: Follow up with primary care provider Return to ED as needed as discussed Definitive disposition and diagnosis as appropriate pending reevaluation and review of above. - Related Data Allergies Allergy/AdvReac Type Severity Reaction Status Date / Time No Known Allergies Allergy Verified 11/08/19 18:13 Home Meds: Home Meds Cefdinir [Omnicef] 1 tab PO ASDIRECTED 11/08/19 [History] Past Medical History - Past Health History Medical/Surgical History: Denies Medical/Surgical History HEENT History: Reports: Impaired Vision, Other (See Below) Other HEENT History: wears contacts Cardiovascular History: Reports: Heart Murmur, Syncope, Other (See Below) Other Cardiovascular History: almost every day palpitations, states "my heart beats fast when I pass out". orthotyclic hypertension syncope Respiratory History: Reports: None, Other (See Below) Other Respiratory History: has inhaler for chest tightness but has not used since , difficulty breathing during heart palpatations. 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" [employer] History: Reports: Musculoskeletal History: Reports: Fracture Neurological History: Reports: Migraines Psychiatric History: Reports: Anxiety, Depression, PTSD, Suicide Attempt Endocrine/Metabolic History: Reports: None Hematologic History: Reports: Iron Deficiency Immunologic History: Reports: None Oncologic (Cancer) History: Reports: None Dermatologic History: Reports: None Other Dermatologic History: gets heat rashes and uses otc lotion - Infectious Disease History Infectious Disease History: Reports: Influenza, Other (See Below) Other Infectious Disease History: H1N1 in 2008 - Past Surgical History Head Surgeries/Procedures: Reports: None Respiratory Surgical History: Reports: None GI Surgical History: Reports: None Female Surgical History: Reports: Section Endocrine Surgical History: Reports: None Neurological Surgical History: Reports: None Musculoskeletal Surgical History: Reports: Other (See Below) Oncologic Surgical History: Reports: None Dermatological Surgical History: Reports: None Social & Family History - Family History Family Medical History: Noncontributory Cardiac: Reports: Hypertension, Other (See Below) Other Cardiac Family History: heart disease OBGYN: Reports: Endocrine/Metabolic: Reports: Diabetes, type II Oncologic: Reports: Breast, Ovarian, Prostate, Other (See Below) Other Oncologic Family History: meningioma - Tobacco Use Smoking Status *Q: Current Every Day Smoker Years of Tobacco use: 5 Packs/Tins Daily: 0.5 - Caffeine Use Caffeine Use: Reports: Coffee, Energy Drinks Caffeine Use Comment: Tries to keep to 200 mg of caffeine or less daily - Recreational Drug Use Recreational Drug Use: No ED ROS GENERAL - Review of Systems Review Of Systems: Comprehensive ROS is negative, except as noted in HPI. ED EXAM, GENERAL - Physical Exam Exam: See Below (see dictation) Course - Vital Signs Last Recorded V/S: Last Vital Signs Temp 96.4 F 11/08/19 18:11 Pulse 80 11/08/19 19:06 Resp 16 11/08/19 18:11 BP 143/90 H 11/08/19 19:06 Pulse Ox 97 11/08/19 19:06 - Orders/Labs/Meds Orders: Active Orders 24 hr Category Date Time Status EKG Documentation Completion [RC] STAT Care 11/08/19 18:22 Ordered Departure - Departure Time of Disposition: 18:50 Disposition: Home, Self-Care 01 Condition: Good Clinical Impression: Pre-syncope - Discharge Information Instructions: Near-Syncope, [id number] Referrals: PCP,None [Primary Care Provider] - Forms: ED Department Discharge Additional Instructions: The following information is given to patients seen in the emergency department who are being discharged to home. This information is to outline your options for follow-up care. We provide all patients seen in our emergency department with a follow-up referral. The need for follow-up, as well as the timing and circumstances, are variable depending upon the specifics of your emergency department visit. If you don't have a primary care physician on staff, we will provide you with a referral. We always advise you to contact your personal physician following an emergency department visit to inform them of the circumstance of the visit and for follow-up with them and/or the need for any referrals to a consulting specialist. The emergency department will also refer you to a specialist when appropriate. This referral assures that you have the opportunity for follow-up care with a specialist. All of these measure are taken in an effort to provide you with optimal care, which includes your follow-up. Under all circumstances we always encourage you to contact your private physician who remains a resource for coordinating your care. When calling for follow-up care, please make the office aware that this follow-up is from your recent emergency room visit. If for any reason you are refused follow-up, please contact the [facility] Emergency Department at and asked to speak to the emergency department charge nurse. [facility] [id number], [place] [id number] [facility] [address] [place] [id number] Follow up with primary care provider Return to ED as needed as discussed Sepsis Event Note - Evaluation Sepsis Screening Result: No Definite Risk - Focused Exam Vital Signs: Vital Signs Temp Pulse Resp BP Pulse Ox 11/08/19 19:06 80 143/90 H 97 11/08/19 18:11 96.4 F 95 16 152/88 H 99 Date Exam was Performed: 11/08/19 Time Exam was Performed: 20:08 - My Orders Last 24 Hours: My Active Orders 11/08/19 18:22 EKG Documentation Completion [RC] STAT - Assessment/Plan Last 24 Hours: My Active Orders 11/08/19 18:22 EKG Documentation Completion [RC] STAT
[2019-11-08 19:11] VITALS: BP 143/90; PULSE 80
== END 2019-11-08 19:06 | disposition home or self-care (01) ==
LOC: MW.ED 18:04
DX: R55 Syncope and collapse (principal); F17.210 Nicotine dependence, cigarettes, uncomplicated
CPT/HCPCS: 93005; 99283; 99284-25

== ENCOUNTER 2022-09-11 14:17 | Emergency (ER) | payer BC, MEDICAID ==
[2022-09-11 14:24] VITALS: BP 146/60
[2022-09-11 15:41] LABS: CARBON DIOXIDE,CO2 24.9 mmol/L (21.0-32.0); POTASSIUM,K 4.2 mmol/L (3.5-5.1)
[2022-09-11] MEDS ORDERED: Amoxicillin/Clavulanate K 500-125 MG Tab PO ONE (17:22)
[2022-09-11] MEDS ORDERED: Amoxicillin/Clavulanate K 875-125 MG Tab PO ONE (17:26)
[2022-09-11 17:36] VITALS: PULSE 70
== END 2022-09-11 17:35 | disposition home or self-care (01) ==
LOC: MW.ED 14:17
DX: O23.41 Unspecified infection of urinary tract in pregnancy, first trimester (principal); N39.0 Urinary tract infection, site not specified; Z3A.01 Less than 8 weeks gestation of pregnancy
CPT/HCPCS: 36415; 76815; 80053; 81001; 84702; 84703; 85025; 87086; 87088; 87186; 99284; A9270

== ENCOUNTER 2022-11-28 13:38 | Emergency (ER) | payer BC, MEDICAID ==
[2022-11-28 14:13] VITALS: BP 110/66; PULSE 87
[2022-11-28] MEDS ORDERED: Sodium Chloride 0.9% 10 ML Syringe FLUSH PRN (14:17)
[2022-11-28] MEDS ORDERED: Sodium Chloride 0.9% 2.5 ML Syringe FLUSH PRN (14:17)
[2022-11-28] MEDS ORDERED: Metoclopramide 10 MG/2 ML SDV IVPUSH ONE (14:18)
[2022-11-28] MEDS ORDERED: Lactated Ringers 1,000 ML IV ONE (14:18)
[2022-11-28] MEDS ORDERED: diphenhydrAMINE 50 MG/ML SDV IVPUSH ONE (14:18)
[2022-11-28 14:59] LABS: CARBON DIOXIDE,CO2 23.6 mmol/L (21.0-32.0); POTASSIUM,K 3.5 mmol/L (3.5-5.1)
== END 2022-11-28 15:47 | disposition home or self-care (01) ==
LOC: MW.ED 13:38
DX: O99.891 Other specified diseases and conditions complicating pregnancy (principal); R10.30 Lower abdominal pain, unspecified; O99.352 Diseases of the nervous system complicating pregnancy, second trimester; G43.909 Migraine, unspecified, not intractable, without status migrainosus; Z3A.16 16 weeks gestation of pregnancy
CPT/HCPCS: 36415; 80053; 85025; 96361; 96374; 96375; 99284; J1200; J2765; J3490; J7120

== ENCOUNTER 2022-12-29 16:57 | Emergency (ER) | payer BC, MEDICAID ==
[2022-12-29] MEDS ORDERED: Sodium Chloride 0.9% 2.5 ML Syringe FLUSH PRN (17:23)
[2022-12-29] MEDS ORDERED: Sodium Chloride 0.9% 1,000 ML IV STA (17:23)
[2022-12-29] MEDS ORDERED: Sodium Chloride 0.9% 10 ML Syringe FLUSH PRN (17:23)
[2022-12-29 18:26] LABS: CARBON DIOXIDE,CO2 22.9 mmol/L (21.0-32.0); POTASSIUM,K 3.4 mmol/L (3.5-5.1)
[2022-12-29] MEDS ORDERED: Potassium Chloride 20 MEQ Tab.ER PO STA (18:31)
[2022-12-29 19:28] VITALS: BP 127/71; PULSE 81
== END 2022-12-29 19:27 | disposition home or self-care (01) ==
LOC: MW.ED 16:57
DX: O99.891 Other specified diseases and conditions complicating pregnancy (principal); R55 Syncope and collapse; O99.282 Endocrine, nutritional and metabolic diseases complicating pregnancy, second trimester; E87.6 Hypokalemia; O10.912 Unspecified pre-existing hypertension complicating pregnancy, second trimester; Z3A.20 20 weeks gestation of pregnancy
CPT/HCPCS: 36415; 80053; 83735; 85025; 93005; 96360; 99284; A9270; J3490; J7030

== ENCOUNTER 2023-04-04 12:44 | Emergency (ER) | payer OTHER, BC, MEDICAID ==
[2023-04-04] MEDS ORDERED: Acetaminophen 325 MG Tab PO ONE (12:46)
== END 2023-04-04 12:57 | disposition home or self-care (01) ==
LOC: MERGE 12:44 → MW.ED 12:44
DX: O9A.213 Injury, poisoning and certain other consequences of external causes complicating pregnancy, third trimester (principal); S16.1XXA Strain of muscle, fascia and tendon at neck level, initial encounter; Z3A.34 34 weeks gestation of pregnancy; V89.2XXA Person injured in unspecified motor-vehicle accident, traffic, initial encounter; Y92.410 Unspecified street and highway as the place of occurrence of the external cause
CPT/HCPCS: 99283

== ENCOUNTER 2023-05-07 05:18 | Inpatient (IN) | payer BC, MEDICAID ==
[2023-05-07] MEDS: Lactated Ringers 1,000 ML IV SCH ×2 (06:00→07:24)
[2023-05-07] MEDS ORDERED: Sodium Chloride 0.9% 20 ML SDV IV PRN (06:12)
[2023-05-07] MEDS ORDERED: ceFAZolin 2 GM in Sodium Chloride 0.9% 50 ML IV ONE (06:12)
[2023-05-07] MEDS ORDERED: Citric Acid/Sodium Citrate Solution 30 ML Cup PO ONE (06:12)
[2023-05-07] MEDS ORDERED: Sodium Chloride 0.9% 2.5 ML Syringe FLUSH PRN (06:12)
[2023-05-07] MEDS ORDERED: Sodium Chloride 0.9% 10 ML Syringe FLUSH PRN (06:12)
[2023-05-07] MEDS ORDERED: Oxytocin/0.9 % Sodium Chloride 30 UNIT/500 ML BAG IV SCH (06:15)
[2023-05-07 06:24] LABS: HEMATOCRIT 39.9 % (36.0-46.0); HEMOGLOBIN 13.6 g/dL (12.0-16.0); MEAN CORPUSCULAR HEMOGLOBIN 32.2 pg (27.0-32.0); MEAN CORPUSCULAR HGB CONC 34.1 g/dL (31.0-37.0); MEAN CORPUSCULAR VOLUME 94.3 fL (80.0-98.0); PLATELET COUNT,PLT 152 K/uL (150-400); RED BLOOD CELL COUNT 4.23 M/uL (4.30-5.90); WHITE BLOOD CELL COUNT,WBC 13.56 K/uL (4.0-11.0)
[2023-05-07] MEDS ORDERED: Water For Injection, Sterile 20 ML ONE (07:19)
[2023-05-07] MEDS ORDERED: Morphine PF 10 MG/10 ML SDV ONE (07:19)
[2023-05-07] MEDS ORDERED: Dexmedetomidine 200 MCG/2 ML SDV ONE (07:19)
[2023-05-07] MEDS ORDERED: Ondansetron 4 MG/2 ML SDV ONE ×2 (07:19→10:47)
[2023-05-07] MEDS ORDERED: Oxytocin 10 Units/1 ML SDV ONE (07:28)
[2023-05-07] MEDS ORDERED: Acetaminophen/oxyCODONE 325-5 MG Tab PO PRN ×2 (07:46→09:13)
[2023-05-07] MEDS ORDERED: fentaNYL 100 MCG/2 ML SDV IVPUSH PRN (07:46)
[2023-05-07] MEDS ORDERED: diphenhydrAMINE 50 MG/ML SDV IVPUSH PRN ×2 (07:46→09:13)
[2023-05-07] MEDS ORDERED: Ondansetron 4 MG/2 ML SDV IVPUSH PRN ×2 (07:46→09:13)
[2023-05-07] MEDS ORDERED: ePHEDrine 50 MG/ML SDV IVPUSH PRN (07:46)
[2023-05-07] MEDS ORDERED: ceFAZolin 2 GM Vial ONE (08:17)
[2023-05-07] MEDS ORDERED: ePHEDrine 50 MG/ML SDV ONE (08:32)
[2023-05-07] MEDS ORDERED: Phenylephrine HCl 0.5 MG/5 ML AMP ONE (08:32)
[2023-05-07] MEDS ORDERED: Ketorolac 30 MG/ML SDV ONE (09:07)
[2023-05-07] MEDS ORDERED: Misoprostol 200 MCG Tab RECTAL PRN (09:13)
[2023-05-07] MEDS ORDERED: Methylergonovine 0.2 MG/1 ML Amp IM PRN (09:13)
[2023-05-07] MEDS ORDERED: Lanolin 100% Cream 7 GM Tube TOP PRN (09:13)
[2023-05-07] MEDS ORDERED: Tranexamic Acid 1,000 MG in Sodium Chloride 0.9% 100 ML IV PRN (09:13)
[2023-05-07] MEDS ORDERED: Bisacodyl 10 MG Supp RECTAL PRN (09:13)
[2023-05-07] MEDS ORDERED: Oxytocin 10 Units/1 ML SDV IM PRN (09:13)
[2023-05-07] MEDS ORDERED: Lactated Ringers 1,000 ML IV SCH (09:15)
[2023-05-07 10:12] LABS: PH,UMBILICAL ARTERIAL 7.255 (7.18-7.38); PH,UMBILICAL VENOUS 7.338 (7.25-7.45)
[2023-05-07] MEDS ORDERED: Acetaminophen 500 MG Tab PO PRN (14:33)
[2023-05-07] MEDS: Ketorolac 30 MG/ML SDV IVPUSH SCH ×2 (15:36→21:12)
[2023-05-07] MEDS: Docusate Sodium 100 MG Cap PO SCH (21:13)
[2023-05-08] MEDS: Acetaminophen/oxyCODONE 325-5 MG Tab PO PRN ×2 (00:28→17:36)
[2023-05-08] MEDS: Ketorolac 30 MG/ML SDV IVPUSH SCH ×2 (03:36→09:03)
[2023-05-08 06:02] LABS: HEMATOCRIT 33.5 % (36.0-46.0); HEMOGLOBIN 11.3 g/dL (12.0-16.0)
[2023-05-08] MEDS: Docusate Sodium 100 MG Cap PO SCH (09:07)
[2023-05-08] MEDS: Ibuprofen 800 MG Tab PO PRN (15:39)
[2023-05-09] MEDS: Docusate Sodium 100 MG Cap PO SCH ×2 (00:29→09:18)
[2023-05-09] MEDS: Ibuprofen 800 MG Tab PO PRN ×2 (01:04→11:37)
[2023-05-09] MEDS: Acetaminophen/oxyCODONE 325-5 MG Tab PO PRN (07:42)
[2023-05-09 08:00] VITALS: BP 113/81; PULSE 83
== END 2023-05-09 13:45 | disposition home or self-care (01) | DRG 540 ==
LOC: MW.OB 05:18
PROVIDERS: ADMIT Obstetrics & Gynecology; ATTEND Obstetrics & Gynecology
PROC: 10D00Z1 Extraction of Products of Conception, Low, Open Approach (ICD-10-PCS; principal; 2023-05-07)
DX: O34.219 Maternal care for unspecified type scar from previous cesarean delivery (principal); Z37.0 Single live birth; Z3A.39 39 weeks gestation of pregnancy; Z98.890 Other specified postprocedural states; Z87.891 Personal history of nicotine dependence; Z91.048 Other nonmedicinal substance allergy status; Z79.899 Other long term (current) drug therapy
CPT/HCPCS: 36415; 82803; 85014; 85018; 85027; 86592; 86850; 86900; 86901; A9270-GY; J0131; J0690; J1885; J2274; J2370; J2405; J2590; J3490; J7120

== ENCOUNTER 2023-09-12 17:03 | Emergency (ER) | payer BC, MEDICAID ==
[2023-09-12] MEDS ORDERED: Morphine 4 MG/ML Syringe IVPUSH ONE (17:40)
[2023-09-12] MEDS ORDERED: Ondansetron 4 MG/2 ML SDV IVPUSH ONE (17:40)
[2023-09-12] MEDS ORDERED: Sodium Chloride 0.9% 2.5 ML Syringe FLUSH PRN (17:40)
[2023-09-12] MEDS ORDERED: Sodium Chloride 0.9% 10 ML Syringe FLUSH PRN (17:40)
[2023-09-12] MEDS ORDERED: Sodium Chloride 0.9% 1,000 ML IV ONE (17:41)
[2023-09-12 18:24] LABS: BASOPHILS ABSOLUTE AUTO 0.04 K/uL (0.00-0.20); BASOPHILS PERCENT AUTO 0.5 % (0.0-1.0); EOSINOPHILS ABSOLUTE AUTO 0.12 K/uL (0.00-0.45); EOSINOPHILS PERCENT AUTO 1.6 % (0.0-6.0); HEMATOCRIT 40.4 % (37.0-47.0); HEMOGLOBIN 14.2 g/dL (12.0-16.0); IMMATURE GRAN ABSOLUTE AUTO 0.01 K/uL (0.00-0.05); IMMATURE GRAN PERCENT AUTO 0.1 % (0.0-0.4); LYMPHOCYTES ABSOLUTE AUTO 1.41 K/uL (1.00-4.80); LYMPHOCYTES PERCENT AUTO 18.7 % (24.0-44.0); MEAN CORPUSCULAR HEMOGLOBIN 32.1 pg (28.0-32.0); MEAN CORPUSCULAR HGB CONC 35.1 g/dL (32.0-36.0); MEAN CORPUSCULAR VOLUME 91.4 fL (83.0-99.0); MEAN PLATELET VOLUME 10.7 fL (9.4-12.3); MONOCYTES ABSOLUTE AUTO 0.61 K/uL (0.00-0.80); MONOCYTES PERCENT AUTO 8.1 % (0.0-8.0); NEUTROPHILS ABSOLUTE AUTO 5.35 K/uL (1.80-7.70); PLATELET COUNT,PLT 250 K/uL (150-400); RED BLOOD CELL COUNT 4.42 M/uL (4.10-5.30); WHITE BLOOD CELL COUNT,WBC 7.54 K/uL (3.9-11.3)
[2023-09-12 18:48] LABS: APPEARANCE,URINE CLEAR; BILIRUBIN,URINE NEGATIVE (NEGATIVE); COLOR,URINE YELLOW; GLUCOSE,URINE NEGATIVE (NEGATIVE); KETONES,URINE NEGATIVE (NEGATIVE); LEUKOCYTE ESTERASE,URINE NEGATIVE (NEGATIVE); NITRITE,URINE NEGATIVE (NEGATIVE); OCCULT BLOOD,URINE NEGATIVE (NEGATIVE); PH,URINE 7.5 (5.0-8.0); PROTEIN,URINE NEGATIVE (NEGATIVE); UROBILINOGEN,URINE 0.2 EU/dL (<2.0)
[2023-09-12 18:48] LABS: ALBUMIN 3.9 g/dL (3.4-5.0); BILIRUBIN TOTAL 0.3 mg/dL (0.2-1.0); CARBON DIOXIDE,CO2 27.5 mmol/L (21.0-32.0); CREATININE 0.8 mg/dL (0.6-1.0); EST CRCL DRUG DOSING (CG) 90.41 mL/min; POTASSIUM,K 3.9 mmol/L (3.5-5.1)
[2023-09-12 18:53] LABS: LACTIC ACID 0.7 mmol/L (0.4-2.0)
[2023-09-12] MEDS ORDERED: Iopamidol 755 MG/ML 500 ML Multipack Bottle IVPUSH ONE (19:48)
[2023-09-12] MEDS ORDERED: Ketorolac 30 MG/ML SDV IVPUSH ONE (20:46)
[2023-09-12 21:13] VITALS: BP 127/59; PULSE 68
== END 2023-09-12 21:13 | disposition home or self-care (01) ==
LOC: MW.ED 17:03
DX: K52.9 Noninfective gastroenteritis and colitis, unspecified (principal); Z86.16 Personal history of COVID-19
CPT/HCPCS: 36415; 74177; 80053; 81003; 81025; 83605; 83690; 85025; 96361; 96374; 96375; 99284; J1885; J2270; J2405; J3490; J7030; Q9967

== ENCOUNTER 2024-05-11 17:47 | Emergency (ER) | payer MEDICAID | END 2024-05-11 18:09 | disposition left against medical advice (07) | LOC: MW.ED 17:47 | DX: Z53.21 Procedure and treatment not carried out due to patient leaving prior to being seen by health care provider (principal) ==

== ENCOUNTER 2024-05-13 22:35 | Emergency (ER) | payer MEDICAID ==
[2024-05-14 02:31] LABS: BASOPHILS ABSOLUTE AUTO 0.06 K/uL (0.00-0.20); BASOPHILS PERCENT AUTO 0.5 % (0.0-1.0); EOSINOPHILS ABSOLUTE AUTO 0.07 K/uL (0.00-0.45); EOSINOPHILS PERCENT AUTO 0.6 % (0.0-6.0); HEMATOCRIT 42.4 % (37.0-47.0); HEMOGLOBIN 14.4 g/dL (12.0-16.0); IMMATURE GRAN ABSOLUTE AUTO 0.03 K/uL (0.00-0.05); IMMATURE GRAN PERCENT AUTO 0.2 % (0.0-0.4); LYMPHOCYTES ABSOLUTE AUTO 2.66 K/uL (1.00-4.80); LYMPHOCYTES PERCENT AUTO 21.5 % (24.0-44.0); MEAN CORPUSCULAR HEMOGLOBIN 31.2 pg (28.0-32.0); MEAN CORPUSCULAR VOLUME 91.8 fL (83.0-99.0); MEAN PLATELET VOLUME 11.3 fL (9.4-12.3); MONOCYTES ABSOLUTE AUTO 0.81 K/uL (0.00-0.80); MONOCYTES PERCENT AUTO 6.6 % (0.0-8.0); NEUTROPHILS ABSOLUTE AUTO 8.73 K/uL (1.80-7.70); NEUTROPHILS PERCENT AUTO 70.6 % (41.0-71.0); PLATELET COUNT,PLT 267 K/uL (150-400); RED BLOOD CELL COUNT 4.62 M/uL (4.10-5.30); WHITE BLOOD CELL COUNT,WBC 12.36 K/uL (3.9-11.3)
[2024-05-14 02:36] LABS: CALCIUM 9.2 mg/dL (8.5-10.1); CARBON DIOXIDE,CO2 26.2 mmol/L (21.0-32.0); CREATININE 0.9 mg/dL (0.6-1.0); EST CRCL DRUG DOSING (CG) 79.64 mL/min; POTASSIUM,K 3.8 mmol/L (3.5-5.1)
[2024-05-14] MEDS: Ketorolac 30 MG/ML SDV IVPUSH ONE (02:52)
[2024-05-14] MEDS: Ondansetron 4 MG/2 ML SDV IVPUSH ONE (02:52)
[2024-05-14] MEDS: Sodium Chloride 0.9% 1,000 ML IV ONE (02:52)
[2024-05-14] MEDS: Sodium Chloride 0.9% 10 ML Syringe FLUSH PRN (02:53)
[2024-05-14] MEDS: Sodium Chloride 0.9% 2.5 ML Syringe FLUSH PRN (02:53)
[2024-05-14 03:32] VITALS: BP 117/72; PULSE 50
[2024-05-14 03:48] LABS: CORONAVIRUS COVID-19 NAA NEGATIVE (NEGATIVE); INFLUENZA A NAA NEGATIVE (NEGATIVE); INFLUENZA B NAA NEGATIVE (NEGATIVE)
== END 2024-05-14 03:32 | disposition home or self-care (01) ==
LOC: MW.ED 22:35
DX: S00.01XA Abrasion of scalp, initial encounter (principal); F07.81 Postconcussional syndrome; F17.210 Nicotine dependence, cigarettes, uncomplicated; Z79.899 Other long term (current) drug therapy; W22.8XXA Striking against or struck by other objects, initial encounter
CPT/HCPCS: 0240U; 36415; 70450; 80048; 84703; 85025; 96361; 96374; 96375; 99284; J1885; J2405; J3490; J7030

== ENCOUNTER 2024-11-01 11:36 | Emergency (ER) | payer MEDICAID ==
[2024-11-01 12:21] LABS: BASOPHILS ABSOLUTE AUTO 0.04 K/uL (0.00-0.20); BASOPHILS PERCENT AUTO 0.4 % (0.0-1.0); EOSINOPHILS ABSOLUTE AUTO 0.06 K/uL (0.00-0.45); EOSINOPHILS PERCENT AUTO 0.5 % (0.0-6.0); HEMATOCRIT 42.7 % (37.0-47.0); HEMOGLOBIN 14.6 g/dL (12.0-16.0); IMMATURE GRAN ABSOLUTE AUTO 0.03 K/uL (0.00-0.05); IMMATURE GRAN PERCENT AUTO 0.3 % (0.0-0.4); LYMPHOCYTES ABSOLUTE AUTO 1.62 K/uL (1.00-4.80); LYMPHOCYTES PERCENT AUTO 14.8 % (24.0-44.0); MEAN CORPUSCULAR HEMOGLOBIN 31.4 pg (28.0-32.0); MEAN CORPUSCULAR HGB CONC 34.2 g/dL (32.0-36.0); MEAN CORPUSCULAR VOLUME 91.8 fL (83.0-99.0); MONOCYTES ABSOLUTE AUTO 0.58 K/uL (0.00-0.80); MONOCYTES PERCENT AUTO 5.3 % (0.0-8.0); NEUTROPHILS ABSOLUTE AUTO 8.58 K/uL (1.80-7.70); NEUTROPHILS PERCENT AUTO 78.7 % (41.0-71.0); PLATELET COUNT,PLT 238 K/uL (150-400); RED BLOOD CELL COUNT 4.65 M/uL (4.10-5.30); WHITE BLOOD CELL COUNT,WBC 10.91 K/uL (3.9-11.3)
[2024-11-01] MEDS: Prochlorperazine 10 MG/2 ML SDV IVPUSH ONE (12:23)
[2024-11-01] MEDS: Sodium Chloride 0.9% 1,000 ML IV ONE (12:23)
[2024-11-01] MEDS: diphenhydrAMINE 50 MG/ML SDV IVPUSH ONE (12:23)
[2024-11-01] MEDS: Ketorolac 30 MG/ML SDV IVPUSH ONE (12:24)
[2024-11-01 12:32] LABS: A/G RATIO 1.2 (0.9-1.6); ALBUMIN 4.2 g/dL (3.4-5.0); BILIRUBIN TOTAL 0.5 mg/dL (0.2-1.0); CALCIUM 9.2 mg/dL (8.5-10.1); CARBON DIOXIDE,CO2 27.6 mmol/L (21.0-32.0); CREATININE 0.8 mg/dL (0.6-1.0); EST CRCL DRUG DOSING (CG) 85.83 mL/min; POTASSIUM,K 4.3 mmol/L (3.5-5.1); PROTEIN TOTAL,TP 7.8 g/dL (6.4-8.2)
[2024-11-01 15:53] VITALS: BP 113/57; PULSE 57
== END 2024-11-01 15:48 | disposition home or self-care (01) ==
LOC: MW.ED 11:36
DX: G43.909 Migraine, unspecified, not intractable, without status migrainosus (principal); Z79.899 Other long term (current) drug therapy; Z75.8 Other problems related to medical facilities and other health care
CPT/HCPCS: 36415; 70450; 70450-26; 80053; 81025; 85025; 96361; 96374; 96375; 99283; 99284-25; J0780; J1200; J1885; J7030